=== PATIENT | female | born 1940 | race Caucasian/White ===

== ENCOUNTER → 2016-10-06 | Outpatient (CLI) | payer MEDICARE, BC ==
--- NOTE | 2016-10-11 09:08 | MM ---
Reason for exam: screening (asymptomatic). Last mammogram was performed 1 year ago. History: Patient is postmenopausal and has history of other cancer at age 67. Family history of breast cancer in maternal cousin at age 69. Excisional biopsy of the left breast, 2004. Took hormonal contraceptives for 9 years beginning at age 22. Physical Findings: A clinical breast exam by your physician is recommended on an annual basis and results should be correlated with mammographic findings. MG 3D Screening Mammo W/Cad Bilateral CC and MLO view(s) were taken. Prior study comparison: September 23, 2015, bilateral MG 3d screening mammo w/cad. March 23, 2015, left breast MG diagnostic mammo LT w CAD. There are scattered fibroglandular densities. Focal asymmetry in the left breast upper quadrant seen on MLO view. No significant changes when compared with prior studies. ASSESSMENT: Benign, BI-RAD 2 RECOMMENDATION: Routine screening mammogram of both breasts in 1 year.
== END | disposition home or self-care (01) ==
LOC: RADMAMWWP 15:14
PROVIDERS: ATTEND Family Medicine
DX: Z12.31 Encounter for screening mammogram for malignant neoplasm of breast (principal)
CPT/HCPCS: 77063; G0202

== ENCOUNTER → 2016-10-18 | Outpatient (CLI) | payer MEDICARE, BC ==
[2016-10-18 12:41] LABS: CH 31.8; CHCM 33.6; HCT 39.8 % (34.0-46.0); HDW 2.77; HGB 13.1 gm/dL (11.4-16.0); MCH 31.3 pg (25.0-35.0); MCHC 32.9 g/dL (31.0-37.0); MCV 95.2 fL (80.0-100.0); Mean Platelet Volume 7.2; RBC 4.18 m/uL (3.80-5.40); RDW 14.1 % (11.5-15.5)
== END | disposition home or self-care (01) ==
LOC: LABWHC1 11:57
PROVIDERS: ATTEND Dermatology Dermatopathology
DX: L40.0 Psoriasis vulgaris (principal); I10 Essential (primary) hypertension; Z79.899 Other long term (current) drug therapy
CPT/HCPCS: 36415; 84443; 84450; 84460; 85027

== ENCOUNTER → 2017-02-23 | Outpatient (CLI) | payer MEDICARE, BC ==
[2017-02-23 17:45] LABS: CH 32.2; CHCM 33.3; HCT 38.5 % (34.0-46.0); HDW 2.59; HGB 12.6 gm/dL (11.4-16.0); MCH 31.8 pg (25.0-35.0); MCHC 32.7 g/dL (31.0-37.0); MCV 97.3 fL (80.0-100.0); Mean Platelet Volume 7.6; RBC 3.96 m/uL (3.80-5.40); RDW 13.9 % (11.5-15.5); WBC 8.7 k/uL (3.8-10.6)
[2017-02-23 17:50] LABS: ALT 40 U/L (9-52); AST 29 U/L (14-36)
== END ==
LOC: LABWHC1 17:10
PROVIDERS: ATTEND Dermatology Dermatopathology
DX: L40.0 Psoriasis vulgaris (principal); Z79.899 Other long term (current) drug therapy
CPT/HCPCS: 36415; 84450; 84460; 85027

== ENCOUNTER → 2017-06-18 | Outpatient (CLI) | payer MEDICARE, BC ==
[2017-06-18 14:48] LABS: CH 32.9; HDW 2.66; MCH 32.4 pg (25.0-35.0); MCHC 33.3 g/dL (31.0-37.0); MCV 97.3 fL (80.0-100.0); RBC 4.32 m/uL (3.80-5.40); RDW 14.4 % (11.5-15.5); WBC 9.1 k/uL (3.8-10.6)
[2017-06-18 15:06] LABS: ALT 40 U/L (9-52); AST 26 U/L (14-36)
== END | disposition home or self-care (01) ==
LOC: LABWHC1 14:02
PROVIDERS: ATTEND Dermatology Dermatopathology
DX: L40.0 Psoriasis vulgaris (principal); Z79.899 Other long term (current) drug therapy
CPT/HCPCS: 36415; 84450; 84460; 85027

== ENCOUNTER → 2017-08-20 | Outpatient (CLI) | payer MEDICARE, BC ==
[2017-08-20 11:38] LABS: Basophils # (A) 0.1 k/uL (0-0.2); Basophils % (A) 1 %; CH 31.9; CHCM 33.4; Eosinophils # (A) 0.3 k/uL (0-0.7); Eosinophils % (A) 5 %; HCT 41.6 % (34.0-46.0); HDW 2.72; HGB 13.5 gm/dL (11.4-16.0); Luc # (Auto) 0.25; Luc % (Auto) 4; Lymphocytes # (A) 1.7 k/uL (1.0-4.8); Lymphocytes % (A) 25 %; MCHC 32.4 g/dL (31.0-37.0); MCV 95.8 fL (80.0-100.0); Mean Platelet Volume 7.4; Monocytes # (A) 0.4 k/uL (0-1.0); Monocytes % (A) 6 %; Neutrophils # (A) 4.1 k/uL (1.3-7.7); Neutrophils % (A) 60 %; RBC 4.34 m/uL (3.80-5.40); RDW 13.6 % (11.5-15.5); WBC 6.9 k/uL (3.8-10.6); WBC (Perox) 7.29
[2017-08-20 11:50] LABS: ALT 49 U/L (9-52); AST 33 U/L (14-36); Alkaline Phosphatase 74 U/L (38-126); Anion Gap 9 mmol/L; Blood Urea Nitrogen 14 mg/dL (7-17); Calcium 9.5 mg/dL (8.4-10.2); Carbon Dioxide 26 mmol/L (22-30); Chloride 105 mmol/L (98-107); Cholesterol 218 mg/dL (<200); Glucose 93 mg/dL (74-99); HDL Cholesterol 54 mg/dL (40-60); Non-African American GFR(MDRD) >60 (>60 ml/min/1.73 sqM); Sodium 140 mmol/L (137-145); Total Bilirubin 0.3 mg/dL (0.2-1.3); Total Protein 7.2 g/dL (6.3-8.2)
== END | disposition home or self-care (01) ==
LOC: LABWHC1 10:28
PROVIDERS: ATTEND Family Medicine
DX: I10 Essential (primary) hypertension (principal)
CPT/HCPCS: 36415; 80053; 80061; 84443; 85025

== ENCOUNTER → 2017-10-23 | Outpatient (CLI) | payer MEDICARE, BC ==
[2017-10-23 15:43] LABS: HCT 41.3 % (34.0-46.0); HGB 13.8 gm/dL (11.4-16.0); MCH 31.7 pg (25.0-35.0); MCHC 33.5 g/dL (31.0-37.0); MCV 94.6 fL (80.0-100.0); Mean Platelet Volume 7.5; Platelet Count 262 k/uL (150-450); RBC 4.37 m/uL (3.80-5.40); RDW 13.6 % (11.5-15.5); WBC 8.6 k/uL (3.8-10.6)
[2017-10-23 16:12] LABS: ALT 34 U/L (9-52); AST 30 U/L (14-36)
== END | disposition home or self-care (01) ==
LOC: LABWHC1 14:50
PROVIDERS: ATTEND Dermatology Dermatopathology
DX: L40.0 Psoriasis vulgaris (principal); Z79.899 Other long term (current) drug therapy
CPT/HCPCS: 36415; 84450; 84460; 85027

== ENCOUNTER → 2017-10-31 | Outpatient (CLI) | payer MEDICARE, BC ==
--- NOTE | 2017-11-02 07:13 | MM ---
Reason for exam: screening (asymptomatic). Last mammogram was performed 1 year and 1 month ago. History: Patient is postmenopausal and has history of other cancer at age 67. Family history of breast cancer in maternal cousin at age 69. Excisional biopsy of the left breast, 2004. Took hormonal contraceptives for 9 years beginning at age 22. Physical Findings: A clinical breast exam by your physician is recommended on an annual basis and results should be correlated with mammographic findings. MG 3D Screening Mammo W/Cad Bilateral CC and MLO view(s) were taken. Prior study comparison: October 06, 2016, bilateral MG 3d screening mammo w/cad. September 23, 2015, bilateral MG 3d screening mammo w/cad. There are scattered fibroglandular densities. No significant changes when compared with prior studies. ASSESSMENT: Benign, BI-RAD 2 RECOMMENDATION: Routine screening mammogram of both breasts in 1 year.
== END | disposition home or self-care (01) ==
LOC: RADMAMWWP 13:17
PROVIDERS: ATTEND Family Medicine
DX: Z12.31 Encounter for screening mammogram for malignant neoplasm of breast (principal)
CPT/HCPCS: 77063; 77067

== ENCOUNTER 2018-01-22 08:29 | Day surgery (SDC) | payer MEDICARE, BC ==
[2018-01-15 10:59] VITALS: BMI 29.9
[~2018-01-22 08:29] MED LIST: LACTATED RINGERS 1,000 ML IV SCH; LIDOCAINE 1% 20 ML VIAL (10MG/ML) FOR IV START INTRADERMA PRN
[2018-01-22 09:31] VITALS: TEMP 98.3
[2018-01-22] MEDS: PHENYLEPHRINE 10% OPHTH DROPS 5 ML BTL OP ONE ×3 (09:38→10:07)
[2018-01-22] MEDS: CYCLOPENTOLATE 1% OPHTH SOLN 2 ML BTL OP ONE ×3 (09:42→10:09)
[2018-01-22] MEDS: FLURBIPROFEN 0.03% OPHTH DROPS 2.5 ML BTL OP ONE ×3 (09:49→10:11)
[2018-01-22] MEDS ORDERED: PROPOFOL 10 MG/ML 20 ML VIAL IV ONE (10:21)
[2018-01-22] MEDS ORDERED: LIDOCAINE 1% INJ 10MG/ML (20 ML MDV) ONE (10:21)
[2018-01-22] MEDS ORDERED: HYALURONATE SODIUM INTRAOCULAR 1 EACH SYRINGE (10MG/ML) INTRAOCULA ONE (10:26)
[2018-01-22] MEDS ORDERED: BALANCED SALT IRRIG SOLN COMB2 15 ML IRRIG.SOLN INTRAOCULA ONE (10:26)
[2018-01-22] MEDS ORDERED: EPINEPHrine (PF) 0.5 ML in BALANCED SALT IRRIG SOLN COMB2 500 ML IRRIGATION ONE (10:28)
[2018-01-22] MEDS ORDERED: TETRACAINE 0.5% OPHTH (PF) DROPS 4 ML BTL LEFT EYE ONE (10:32)
[2018-01-22] MEDS ORDERED: LIDOCAINE 1% (PF) 10MG/ML VIAL SQ ONE (10:33)
--- NOTE | 2018-01-22 10:46 | P.OP ---
Date of Procedure: 01/22/18 Procedure(s) Performed: PREOPERATIVE DIAGNOSIS: Cataract, left eye. POSTOPERATIVE DIAGNOSIS: Cataract, left eye. OPERATION: Phacoemulsification cataract, left eye. DESCRIPTION OF PROCEDURE: The patient was taken to the preoperative holding area. Intravenous Propofol was given so as to bring about adequate sedation. The following mixture was given for local anesthesia: 5 mL of 2% lidocaine, 5 mL of 0.75% Marcaine, and 1 mL of Wydase. Approximately 4 mL was injected in the retrobulbar space of the surgical eye. Additional 1 mL was then directed to the temporal area of the surgical eye. This was performed to allow adequate neurological block of the facial muscles. The patient was revived and then taken into the operative room. The patient was prepped and draped in the usual sterile manner for the operative eye. A lid speculum was put into position. The conjunctiva was resected back from the limbus in the 12 o'clock position. Bleeding was controlled with electrocautery. A #69 blade was then used and a half-thickness scleral incision approximately 1-mm posterior to the limbus was made on bare sclera. This was shelved in the clear cornea using a crescent knife. Next a 15-degree blade was used to make a stab incision at the 3 o' clock position at the corneolimbal interface. Keratome blade was then used and the superior wound was extended into the anterior chamber. Viscoelastic was injected into the anterior chamber and to maintain its form. Next, a cystotome was used and a continuous anterior capsulotomy was made without difficulty. Hydrodissection using a blunt cannula and BSS was performed. Phaco probe was then employed and a groove extending from 12 to 6 o'clock in the lens was created. A Yimi wand was used through the stab incision so as to perform a divide and conquer technique. Next an irrigation aspiration probe was utilized and any residual cortex was removed from the eye. Again, viscoelastic was injected into the anterior chamber. An Luc posterior chamber lens implant was placed in the cartridge and injected into the anterior chamber without difficulty. The [employer] hook was utilized to spin the lens into position and this was again performed without any difficulty. The irrigation and aspiration probe was again employed and any residual viscoelastic was removed from the eye. Then BSS was injected into the limbal stab incision and the anterior chamber re-inflated. The conjunctiva was reapproximated using electrocautery. One drop of 0.25% Timoptic was placed over the corneal along with TobraDex ophthalmic ointment. Two sterile patches and a Valles eye shield were taped into position. The patient was transported to the recovery room in stable condition. Pathology: none sent Condition: stable Disposition: same day
[2018-01-22 11:17] VITALS: BP 189/76; PULSE 68; RESP 18
[2018-01-22] MEDS ORDERED: BUPIVACAINE (PF) 0.75% 5 ML, HYALURONIDASE, HUMAN RECOMB 150 UNIT, LIDOCAINE 2% (PF) 10... MISCELLANE ONE ×3 (23:00)
[2018-01-22] MEDS ORDERED: TIMOLOL 0.5% OPHTH DROPS 5 ML BTL OP ONE (23:00)
[2018-01-22] MEDS ORDERED: GENTAMICIN/PREDNISOL AC OPHTH OINT 3.5GM OPHTHALMIC ONE (23:00)
== END 2018-01-22 11:33 | disposition home or self-care (01) ==
LOC: OR 08:29
PROVIDERS: ATTEND Ophthalmology
DX: H25.12 Age-related nuclear cataract, left eye (principal); I10 Essential (primary) hypertension; J45.909 Unspecified asthma, uncomplicated; E78.5 Hyperlipidemia, unspecified; E07.9 Disorder of thyroid, unspecified; Z79.890 Hormone replacement therapy; Z79.899 Other long term (current) drug therapy; Z87.891 Personal history of nicotine dependence; Z98.51 Tubal ligation status; Z88.5 Allergy status to narcotic agent
CPT/HCPCS: 66984; V2632; J3470; J2001 ×3; J0171; J2704

== ENCOUNTER → 2018-02-22 | Outpatient (CLI) | payer MEDICARE, BC ==
[2018-02-22 14:27] LABS: HGB 13.6 gm/dL (11.4-16.0); MCH 32.1 pg (25.0-35.0); MCHC 33.9 g/dL (31.0-37.0); MCV 94.8 fL (80.0-100.0); Mean Platelet Volume 7.2; Platelet Count 249 k/uL (150-450); RBC 4.22 m/uL (3.80-5.40); RDW 14.1 % (11.5-15.5)
[2018-02-22 14:35] LABS: ALT 33 U/L (9-52); AST 31 U/L (14-36)
== END | disposition home or self-care (01) ==
LOC: LABWHC1 14:01
PROVIDERS: ATTEND Dermatology Dermatopathology
DX: L40.0 Psoriasis vulgaris (principal); Z79.899 Other long term (current) drug therapy
CPT/HCPCS: 36415; 84450; 84460; 85027

== ENCOUNTER 2018-02-26 07:30 | Day surgery (SDC) | payer MEDICARE, BC ==
[~2018-02-26 07:30] MED LIST changes: +BUPIVACAINE (PF) 0.75% 5 ML, HYALURONIDASE, HUMAN RECOMB 150 UNIT, LIDOCAINE 2% (PF) 10... MISCELLANE ONE; +GENTAMICIN/PREDNISOL AC OPHTH OINT 3.5GM OPHTHALMIC ONE; -LIDOCAINE 1% 20 ML VIAL (10MG/ML) FOR IV START INTRADERMA PRN; +TIMOLOL 0.5% OPHTH DROPS 5 ML BTL OP ONE
[2018-02-26] MEDS: CYCLOPENTOLATE 1% OPHTH SOLN 2 ML BTL OP ONE ×3 (08:00→08:17)
[2018-02-26 08:01] VITALS: TEMP 97.8
[2018-02-26] MEDS: FLURBIPROFEN 0.03% OPHTH DROPS 2.5 ML BTL OP ONE ×3 (08:03→08:20)
[2018-02-26] MEDS: PHENYLEPHRINE 10% OPHTH DROPS 5 ML BTL OP ONE ×3 (08:06→08:23)
[2018-02-26] MEDS ORDERED: HYALURONATE SODIUM INTRAOCULAR 1 EACH SYRINGE (10MG/ML) INTRAOCULA ONE ×2 (09:03→09:16)
[2018-02-26] MEDS ORDERED: BALANCED SALT IRRIG SOLN COMB2 15 ML IRRIG.SOLN IRRIGATION ONE ×2 (09:03→09:16)
[2018-02-26] MEDS ORDERED: PROPOFOL 10 MG/ML 20 ML VIAL IV ONE (09:04)
[2018-02-26] MEDS ORDERED: LIDOCAINE 1% INJ 10MG/ML (20 ML MDV) ONE (09:04)
[2018-02-26] MEDS ORDERED: EPINEPHrine (PF) 0.5 ML in BALANCED SALT IRRIG SOLN COMB2 500 ML IRRIGATION ONE (09:11)
--- NOTE | 2018-02-26 09:26 | P.OP ---
Date of Procedure: 02/26/18 Procedure(s) Performed: PREOPERATIVE DIAGNOSIS: Cataract, right eye. POSTOPERATIVE DIAGNOSIS: Cataract, right eye. OPERATION: Phacoemulsification cataract, right eye. DESCRIPTION OF PROCEDURE: The patient was taken to the preoperative holding area. Intravenous Propofol was given so as to bring about adequate sedation. The following mixture was given for local anesthesia: 5 mL of 2% lidocaine, 5 mL of 0.75% Marcaine, and 1 mL of Wydase. Approximately 4 mL was injected in the retrobulbar space of the surgical eye. Additional 1 mL was then directed to the temporal area of the surgical eye. This was performed to allow adequate neurological block of the facial muscles. The patient was revived and then taken into the operative room. The patient was prepped and draped in the usual sterile manner for the operative eye. A lid speculum was put into position. The conjunctiva was resected back from the limbus in the 12 o'clock position. Bleeding was controlled with electrocautery. A #69 blade was then used and a half-thickness scleral incision approximately 1-mm posterior to the limbus was made on bare sclera. This was shelved in the clear cornea using a crescent knife. Next a 15-degree blade was used to make a stab incision at the 3 o' clock position at the corneolimbal interface. Keratome blade was then used and the superior wound was extended into the anterior chamber. Viscoelastic was injected into the anterior chamber and to maintain its form. Next, a cystotome was used and a continuous anterior capsulotomy was made without difficulty. Hydrodissection using a blunt cannula and BSS was performed. Phaco probe was then employed and a groove extending from 12 to 6 o'clock in the lens was created. A Yimi wand was used through the stab incision so as to perform a divide and conquer technique. Next an irrigation aspiration probe was utilized and any residual cortex was removed from the eye. Again, viscoelastic was injected into the anterior chamber. An Luc posterior chamber lens implant was placed in the cartridge and injected into the anterior chamber without difficulty. The Sin[employer] hook was utilized to spin the lens into position and this was again performed without any difficulty. The irrigation and aspiration probe was again employed and any residual viscoelastic was removed from the eye. Then BSS was injected into the limbal stab incision and the anterior chamber re-inflated. The conjunctiva was reapproximated using electrocautery. One drop of 0.25% Timoptic was placed over the corneal along with TobraDex ophthalmic ointment. Two sterile patches and a Valles eye shield were taped into position. The patient was transported to the recovery room in stable condition. Pathology: none sent Condition: stable Disposition: same day
[2018-02-26 09:36] VITALS: RESP 18
[2018-02-26 09:55] VITALS: BP 163/79; PULSE 62
== END 2018-02-26 10:03 | disposition home or self-care (01) ==
LOC: OR 07:30
PROVIDERS: ATTEND Ophthalmology
DX: H25.11 Age-related nuclear cataract, right eye (principal); H35.369 Drusen (degenerative) of macula, unspecified eye; I10 Essential (primary) hypertension; E78.5 Hyperlipidemia, unspecified; J44.9 Chronic obstructive pulmonary disease, unspecified; Z87.891 Personal history of nicotine dependence; E07.9 Disorder of thyroid, unspecified; Z79.890 Hormone replacement therapy; Z79.899 Other long term (current) drug therapy; Z88.5 Allergy status to narcotic agent
CPT/HCPCS: 66984; V2632; J3470; J2001 ×2; J0171; J2704

== ENCOUNTER → 2018-09-26 | Outpatient (CLI) | payer MEDICARE, BC ==
[2018-09-26 12:16] LABS: Basophils # (A) 0.1 k/uL (0-0.2); Basophils % (A) 1 %; Eosinophils # (A) 0.3 k/uL (0-0.7); Eosinophils % (A) 4 %; HCT 42.9 % (34.0-46.0); Lymphocytes # (A) 1.6 k/uL (1.0-4.8); Lymphocytes % (A) 20 %; MCH 31.4 pg (25.0-35.0); MCHC 32.6 g/dL (31.0-37.0); MCV 96.2 fL (80.0-100.0); Mean Platelet Volume 7.4; Monocytes # (A) 0.6 k/uL (0-1.0); Monocytes % (A) 7 %; Neutrophils # (A) 5.2 k/uL (1.3-7.7); Neutrophils % (A) 65 %; Platelet Count 276 k/uL (150-450); RBC 4.46 m/uL (3.80-5.40); RDW 14.1 % (11.5-15.5)
[2018-09-26 18:10] LABS: Albumin 4.7 g/dL (3.80-4.90); Albumin/Globulin Ratio 2.04 (1.20-2.10); Anion Gap 10.8 mmol/L (4.00-12.00); Calcium 9.6 mg/dL (8.7-10.3); Carbon Dioxide 26.2 mmol/L (21.6-31.8); Globulin 2.3 g/dL (1.6-3.3); Potassium 5.2 mmol/L (3.5-5.5); Total Bilirubin 0.5 mg/dL (0.2-1.2)
== END ==
LOC: LABWHC1 11:28
PROVIDERS: ATTEND Family Medicine
DX: I10 Essential (primary) hypertension (principal); E78.5 Hyperlipidemia, unspecified
CPT/HCPCS: 36415; 80053; 80061; 84443; 85025

== ENCOUNTER → 2018-11-13 | Outpatient (CLI) | payer MEDICARE, BC ==
--- NOTE | 2018-11-14 11:57 | MM ---
Reason for exam: screening (asymptomatic). Last mammogram was performed 1 year ago. History: Patient is postmenopausal and has history of other cancer at age 67. Family history of breast cancer in maternal cousin at age 69. Excisional biopsy of the left breast, 2004. Took hormonal contraceptives for 9 years beginning at age 22. Physical Findings: A clinical breast exam by your physician is recommended on an annual basis and results should be correlated with mammographic findings. MG 3D Screening Mammo W/Cad Bilateral CC and MLO view(s) were taken. Prior study comparison: October 31, 2017, bilateral MG 3d screening mammo w/cad. October 06, 2016, bilateral MG 3d screening mammo w/cad. There are scattered fibroglandular densities. Stable benign calcifications. There is chronic nodularity in the left breast, stable. No significant changes when compared with prior studies. ASSESSMENT: Benign, BI-RAD 2 RECOMMENDATION: Routine screening mammogram of both breasts in 1 year.
== END | disposition home or self-care (01) ==
LOC: RADMAMWWP 09:59
PROVIDERS: ATTEND Family Medicine
DX: Z12.31 Encounter for screening mammogram for malignant neoplasm of breast (principal)
CPT/HCPCS: 77063; 77067

== ENCOUNTER → 2019-01-08 | Outpatient (CLI) | payer MEDICARE, BC ==
[2019-01-08 13:54] LABS: HCT 40.4 % (34.0-46.0); MCHC 32.3 g/dL (31.0-37.0); Mean Platelet Volume 7.5; Platelet Count 263 k/uL (150-450)
[2019-01-08 19:00] LABS: ALT 19 U/L (8-44); AST 25 U/L (13-35)
== END | disposition home or self-care (01) ==
LOC: LABWHC1 13:11
PROVIDERS: ATTEND Dermatology Dermatopathology
DX: L40.0 Psoriasis vulgaris (principal); Z79.899 Other long term (current) drug therapy
CPT/HCPCS: 36415; 84450; 84460; 85027

== ENCOUNTER → 2019-02-27 | Outpatient (CLI) | payer MEDICARE, BC ==
--- NOTE | 2019-02-27 19:21 | ECHOF ---
Referral Reason:R00.2 Palpitations MEASUREMENTS -------- HEIGHT: 165.1 cm WEIGHT: 90.7 kg BP: 174/76 RVIDd: 3.4 cm (< 3.3) IVSd: 1.0 cm (0.6 - 1.1) LVIDd: 3.7 cm (3.9 - 5.3) LVPWd: 1.2 cm (0.6 - 1.1) IVSs: 1.5 cm LVIDs: 2.6 cm LVPWs: 1.6 cm LA Diam: 3.0 cm (2.7 - 3.8) LAESV Index (A-L): 24.45 ml/m Ao Diam: 3.1 cm (2.0 - 3.7) AV Cusp: 1.7 cm (1.5 - 2.6) MV EXCURSION: 14.577 mm (> 18.000) MV EF SLOPE: 79 mm/s (70 - 150) EPSS: 0.2 cm MV E Bill: 1.20 m/s MV DecT: 263 ms MV A Bill: 1.33 m/s MV E/A Ratio: 0.90 AV maxP.73 mmHg AV meanP.88 mmHg RAP: 5.00 mmHg RVSP: 36.82 mmHg FINDINGS -------- Sinus rhythm. This was a technically adequate study. The left ventricular size is normal. There is borderline concentric left ventricular hypertrophy. Overall left ventricular systolic function is normal with, an EF between 60 - 65 %. The right ventricle is mildly enlarged. Normal LA size by volume 22+/-6 ml/m2. The right atrium is normal in size. Interatrial and interventricular septum intact. There is mild aortic valve sclerosis. There is mild aortic stenosis present. Peak/mean gradient a cross the Aortic Valve is 26.73mmHg / 11.88mmHg. Mild mitral regurgitation is present. Mild tricuspid regurgitation present. There is mild pulmonary hypertension. The right ventricular systolic pressure, as measured by Doppler, is 36.82mmHg. Trace/mild (physiologic) pulmonic regurgitation. The aortic root size is normal. Normal inferior vena cava with normal inspiratory collapse consistent with estimated right atrial pre ssure of 5 mmHg. There is no pericardial effusion. CONCLUSIONS -------- 1. Sinus rhythm. 2. This was a technically adequate study. 3. The left ventricular size is normal. 4. There is borderline concentric left ventricular hypertrophy. 5. Overall left ventricular systolic function is normal with, an EF between 60 - 65 %. 6. The right ventricle is mildly enlarged. 7. Normal LA size by volume 22+/-6 ml/m2. 8. The right atrium is normal in size. 9. Interatrial and interventricular septum intact. 10. There is mild aortic valve sclerosis. 11. There is mild aortic stenosis present. 12. Peak/mean gradient across the Aortic Valve is 26.73mmHg / 11.88mmHg. 13. Mild mitral regurgitation is present. 14. Mild tricuspid regurgitation present. 15. There is mild pulmonary hypertension. 16. The right ventricular systolic pressure, as measured by Doppler, is 36.82mmHg. 17. Trace/mild (physiologic) pulmonic regurgitation. 18. The aortic root size is normal. 19. Normal inferior vena cava with normal inspiratory collapse consistent with estimated right atrial pressure of 5 mmHg. 20. There is no pericardial effusion. DIE TURNER: Lizabeth Quezada RDCS
== END | disposition home or self-care (01) ==
LOC: RADECHMAIN 15:22
PROVIDERS: ATTEND Family Medicine
DX: I08.3 Combined rheumatic disorders of mitral, aortic and tricuspid valves (principal); I27.20 Pulmonary hypertension, unspecified
CPT/HCPCS: 93306

== ENCOUNTER → 2019-05-08 | Outpatient (CLI) | payer MEDICARE, BC ==
[2019-05-08 15:17] LABS: HCT 40.5 % (34.0-46.0); HGB 13.4 gm/dL (11.4-16.0); MCH 31.6 pg (25.0-35.0); MCV 95.7 fL (80.0-100.0); Mean Platelet Volume 7.6; Platelet Count 244 k/uL (150-450); RBC 4.23 m/uL (3.80-5.40); RDW 13.5 % (11.5-15.5); WBC 7.7 k/uL (3.8-10.6)
[2019-05-08 18:58] LABS: ALT 22 U/L (8-44); AST 24 U/L (13-35)
== END | disposition home or self-care (01) ==
LOC: LABWHC1 14:05
PROVIDERS: ATTEND Dermatology Dermatopathology
DX: L40.0 Psoriasis vulgaris (principal); Z79.899 Other long term (current) drug therapy
CPT/HCPCS: 36415; 84450; 84460; 85027

== ENCOUNTER → 2019-06-16 | Outpatient (CLI) | payer MEDICARE, BC ==
--- NOTE | 2019-06-19 12:09 | EST ---
EXERCISE STRESS The patient was monitored for 24 hours. CLINICAL INFORMATION: Baseline rhythm is a sinus mechanism with normal conduction the average rate 66 beats per minute, minimum 47, maximum 107 beats per minute. Ventricular ectopic activity was present in the form of rare single PVCs. Supraventricular ectopic activity was present in the form of rare single PACs. Symptoms of palpitations did not correlate with a clear arrhythmia. CONCLUSION: 1. Sinus mechanism baseline rhythm. 2. Rare ventricular ectopic activity. 3. Rare supraventricular ectopic activity. 4. Symptoms did not correlate with clear arrhythmia. MMODL / IJN: [id number] /
== END | disposition home or self-care (01) ==
LOC: RADECHMAIN 12:29
PROVIDERS: ATTEND Family Medicine
DX: R00.2 Palpitations (principal)
CPT/HCPCS: 93225; 93226

== ENCOUNTER → 2019-06-26 | Outpatient (CLI) | payer MEDICARE, BC ==
[2019-06-27 01:52] LABS: African American GFR (CKD) 82.4 (60.0-200.0); Anion Gap 7.9 mmol/L (4.00-12.00); BUN/Creat Ratio 22.5 Ratio (12.00-20.00); Calcium 9.2 mg/dL (8.7-10.3); Carbon Dioxide 26.1 mmol/L (21.6-31.8); Potassium 4.6 mmol/L (3.5-5.5)
== END | disposition home or self-care (01) ==
LOC: LABWHC1 11:20
PROVIDERS: ATTEND Family Medicine
DX: E78.5 Hyperlipidemia, unspecified (principal)
CPT/HCPCS: 36415; 80048

== ENCOUNTER → 2019-08-19 | Outpatient (CLI) | payer MEDICARE, BC ==
[2019-08-19 12:14] LABS: HCT 39.7 % (34.0-46.0); HGB 13.5 gm/dL (11.4-16.0); MCH 32.2 pg (25.0-35.0); MCV 94.6 fL (80.0-100.0); Mean Platelet Volume 6.3; Platelet Count 290 k/uL (150-450); RBC 4.19 m/uL (3.80-5.40); RDW 13.4 % (11.5-15.5); WBC 7.9 k/uL (3.8-10.6)
[2019-08-19 16:25] LABS: ALT 25 U/L (8-44); AST 24 U/L (13-35)
== END | disposition home or self-care (01) ==
LOC: LABWHC1 11:22
PROVIDERS: ATTEND Dermatology Dermatopathology
DX: L40.0 Psoriasis vulgaris (principal); Z79.899 Other long term (current) drug therapy
CPT/HCPCS: 36415; 84450; 84460; 85027

== ENCOUNTER → 2020-03-10 | Outpatient (CLI) | payer MEDICARE, BC ==
[2020-03-10 10:59] LABS: Basophils # (A) 0.1 k/uL (0-0.2); Basophils % (A) 1 %; Eosinophils # (A) 0.2 k/uL (0-0.7); Eosinophils % (A) 4 %; HCT 39.9 % (34.0-46.0); HGB 13.4 gm/dL (11.4-16.0); Lymphocytes # (A) 1.3 k/uL (1.0-4.8); Lymphocytes % (A) 21 %; MCH 32.3 pg (25.0-35.0); MCHC 33.4 g/dL (31.0-37.0); MCV 96.7 fL (80.0-100.0); Mean Platelet Volume 8.3; Monocytes # (A) 0.4 k/uL (0-1.0); Monocytes % (A) 6 %; Neutrophils # (A) 4.4 k/uL (1.3-7.7); Neutrophils % (A) 68 %; Platelet Count 227 k/uL (150-450); RBC 4.13 m/uL (3.80-5.40); RDW 13.7 % (11.5-15.5); WBC 6.5 k/uL (3.8-10.6)
[2020-03-10 18:31] LABS: African American GFR (CKD) 82.4 (60.0-200.0); Albumin 4.5 g/dL (3.80-4.90); Albumin/Globulin Ratio 2.05 (1.60-3.17); Anion Gap 9.2 mmol/L (4.00-12.00); BUN/Creat Ratio 18.75 Ratio (12.00-20.00); Calcium 9.4 mg/dL (8.7-10.3); Carbon Dioxide 26.8 mmol/L (21.6-31.8); Chol/HDL Ratio 3.1; Globulin 2.2 g/dL (1.6-3.3); LDL Cholesterol,Calculated 74.6 mg/dL (0.0-131.0); Non-African American GFR(CKD) 71.1 (60.0-200.0); Potassium 4.6 mmol/L (3.5-5.5); Total Bilirubin 0.6 mg/dL (0.2-1.2); Total Protein 6.7 g/dL (6.2-8.2); VLDL Calculation 32.4 mg/dL (5.00-40.00)
== END | disposition home or self-care (01) ==
LOC: LABWHC1 09:51
PROVIDERS: ATTEND Dermatology Dermatopathology
DX: L40.0 Psoriasis vulgaris (principal); Z79.899 Other long term (current) drug therapy
CPT/HCPCS: 36415; 80053; 80061; 84443; 85025; 86803

== ENCOUNTER → 2020-03-10 | Outpatient (CLI) | payer MEDICARE, BC ==
--- NOTE | 2020-03-11 11:08 | MM ---
Reason for exam: screening (asymptomatic). Last mammogram was performed 1 year and 4 months ago. History: Patient is postmenopausal and has history of other cancer at age 67. Family history of breast cancer in maternal cousin at age 69. Excisional biopsy of the left breast, 2004. Took hormonal contraceptives for 9 years beginning at age 22. Physical Findings: A clinical breast exam by your physician is recommended on an annual basis and results should be correlated with mammographic findings. MG 3D Screening Mammo W/Cad Bilateral CC and MLO view(s) were taken. Prior study comparison: November 13, 2018, bilateral MG 3d screening mammo w/cad. October 31, 2017, bilateral MG 3d screening mammo w/cad. There are scattered fibroglandular densities. There are benign appearing round dystrophic calcifications bilaterally. Asymmetric breast tissue in the left breast. There is no discrete abnormality. ASSESSMENT: Benign, BI-RAD 2 RECOMMENDATION: Routine screening mammogram of both breasts in 1 year.
== END | disposition home or self-care (01) ==
LOC: RADMAMWWP 09:29
PROVIDERS: ATTEND Family Medicine
DX: Z12.31 Encounter for screening mammogram for malignant neoplasm of breast (principal)
CPT/HCPCS: 77063; 77067

== ENCOUNTER → 2020-07-16 | Outpatient (CLI) | payer MEDICARE, BC ==
[2020-07-16 14:01] LABS: HCT 38.4 % (34.0-46.0); HGB 12.8 gm/dL (11.4-16.0); MCH 32.5 pg (25.0-35.0); MCHC 33.4 g/dL (31.0-37.0); MCV 97.4 fL (80.0-100.0); Mean Platelet Volume 7.8; Platelet Count 254 k/uL (150-450); RBC 3.94 m/uL (3.80-5.40); RDW 13.7 % (11.5-15.5); WBC 8.5 k/uL (3.8-10.6)
[2020-07-16 20:53] LABS: ALT 19 U/L (8-44); AST 23 U/L (13-35)
== END | disposition home or self-care (01) ==
LOC: LABWHC1 13:11
PROVIDERS: ATTEND Dermatology Dermatopathology
DX: L40.0 Psoriasis vulgaris (principal); Z79.899 Other long term (current) drug therapy
CPT/HCPCS: 36415; 84450; 84460; 85027

== ENCOUNTER → 2020-08-05 | Outpatient (CLI) | payer MEDICARE, BC ==
--- NOTE | 2020-08-05 16:37 | US ---
EXAMINATION TYPE: US carotid duplex BILAT DATE OF EXAM: 08/05/2020 COMPARISON: NONE CLINICAL HISTORY: R55 Syncope and collapse. EXAM MEASUREMENTS: RIGHT: Peak Systolic Velocity (PSV) cm/sec ----- Right CCA: 43.5 ----- Right ICA: 239 ----- Right ECA: 40.8 ICA/CCA ratio: 5.5 RIGHT: End Diastole cm/sec ----- Right CCA: 14.3 ----- Right ICA: 39.8 ----- Right ECA: 4.8 LEFT: Peak Systolic Velocity (PSV) cm/sec ----- Left CCA: 110 ----- Left ICA: 109 ----- Left ECA: 152 ICA/CCA ratio: 1.0 LEFT: End Diastole cm/sec ----- Left CCA: 25.3 ----- Left ICA: 34.8 ----- Left ECA: 21.6 VERTEBRALS (direction of flow): Right Vertebral: Antegrade Left Vertebral: Antegrade Rhythm: Normal Peak systolic velocity within the proximal internal carotid artery in the right is elevated. ICA to C CA ratio is elevated. There is spectral broadening, loss of the systolic window.. Severe amount of pl aque visualized bilateral bulbs. Elevated velocities visualized right bulb, right ICA, and left ECA IMPRESSION: Hemodynamic significant stenosis of the proximal internal carotid artery on the right co rresponding to 50-69% diameter reduction by Doppler criteria, perhaps higher grade stenosis, MRA or C TA may be of benefit. Criteria for Assigning % of Stenosis / Diameter reduction (Estimation based on the indirect measurements of the internal carotid artery velocities (ICA PSV). 1. Normal (no stenosis)=ICA PSV < 125 cm/s: ratio < 2.0: ICA EDV<40 cm/s. 2. Less than 50% stenosis=ICA PSV < 125 cm/s: ratio < 2.0: ICA EDV<40 cm/s. 3. 50 to 69% stenosis=ICA PSV of 125 to 230 cm/s: ration 2.0 ? 4.0: ICA EDV 40-100 cm/s. 4. Greater than 70% stenosis to near occlusion= ICA PSV > 230 cm/s: ratio > 4.0: ICA EDV > 100 cm/s. 5. Near occlusion= ICA PSV velocities may be low or undetectable: variable ratio and ICA EDV. 6. Total occlusion=unable to detect flow.
--- NOTE | 2020-08-06 09:46 | ECHOF ---
Referral Reason:R55 Syncope and collapse MEASUREMENTS -------- HEIGHT: 162.6 cm WEIGHT: 81.6 kg BP: 159/68 RVIDd: 2.9 cm (< 3.3) IVSd: 1.1 cm (0.6 - 1.1) LVIDd: 3.9 cm (3.9 - 5.3) LVPWd: 1.1 cm (0.6 - 1.1) IVSs: 1.5 cm LVIDs: 2.7 cm LVPWs: 1.4 cm LA Diam: 3.3 cm (2.7 - 3.8) LAESV Index (A-L): 20.58 ml/m Ao Diam: 3.3 cm (2.0 - 3.7) AV Cusp: 1.8 cm (1.5 - 2.6) MV EXCURSION: 14.577 mm (> 18.000) MV EF SLOPE: 86 mm/s (70 - 150) EPSS: 0.3 cm MV E Bill: 1.11 m/s MV DecT: 202 ms MV A Bill: 1.39 m/s MV E/A Ratio: 0.79 AV maxP.43 mmHg AV meanP.05 mmHg RAP: 5.00 mmHg RVSP: 32.22 mmHg FINDINGS -------- Sinus rhythm. This was a technically good study. The left ventricular size is normal. There is borderline concentric left ventricular hypertrophy. Overall left ventricular systolic function is normal with, an EF between 60 - 65 %. The right ventricle is normal in size. Normal LA size by volume 22+/-6 ml/m2. The right atrium is normal in size. Interatrial and interventricular septum intact. There is mild aortic valve sclerosis. There is mild aortic stenosis present. Peak/mean gradient a cross the Aortic Valve is 23.43mmHg / 12.05mmHg. The mitral valve leaflets are mildly thickened. Mild mitral annular calcification present. Mild m itral regurgitation is present. Mild tricuspid regurgitation present. Right ventricular systolic pressure is normal at < 35 mmHg. Trace/mild (physiologic) pulmonic regurgitation. The aortic root size is normal. Normal inferior vena cava with normal inspiratory collapse consistent with estimated right atrial pre ssure of 5 mmHg. There is no pericardial effusion. CONCLUSIONS -------- 1. The left ventricular size is normal. 2. There is borderline concentric left ventricular hypertrophy. 3. Overall left ventricular systolic function is normal with, an EF between 60 - 65 %. 4. There is mild aortic valve sclerosis. 5. There is mild aortic stenosis present. 6. Peak/mean gradient across the Aortic Valve is 23.43mmHg / 12.05mmHg. 7. The mitral valve leaflets are mildly thickened. 8. Mild mitral annular calcification present. 9. Mild mitral regurgitation is present. 10. Mild tricuspid regurgitation present. 11. Trace/mild (physiologic) pulmonic regurgitation. 12. There is no pericardial effusion. [employer] COACH: Lizabeth Quezada RDCS
== END | disposition home or self-care (01) ==
LOC: RADUSMAIN 14:47
PROVIDERS: ATTEND Family Medicine
DX: R55 Syncope and collapse (principal)
CPT/HCPCS: 93306; 93880

== ENCOUNTER → 2020-09-02 | Outpatient (CLI) | payer MEDICARE, BC ==
--- NOTE | 2020-09-02 14:15 | MR ---
EXAMINATION TYPE: MR angio neck wo/w con DATE OF EXAM: 09/02/2020 COMPARISON: Carotid ultrasound August 05, 2020 HISTORY: Syncope CONTRAST: Standard multiplanar, multisequence MRI departmental protocol utilizing 7.5 mL intravenous Gadavist g adolinium contrast. 2-D and 3-D reconstructive images created on an independent workstation and revi ewed. FINDINGS: Bovine-type arch which is normal variant. Satisfactory blood flow in the bilateral subclavi an arteries. Right common carotid artery shows normal origin from the right brachiocephalic artery. S ignificant stenosis right carotid bulb is confirmed seen best on coronal image 78 series 601 over a r oughly 6 to 7 mm short segment. There is narrowing down to roughly 1.0 mm and reconstitution to 5.5 m m superior to this. Left external carotid artery is small caliber, cannot exclude significant stenosi s at its origin. The opposite left carotid bulb shows no significant stenosis slightly higher in position seen best im age 89. Remainder of the internal carotid arteries bilaterally to the upper cervical segment shows no significant stenosis. 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 Right vertebral artery is patent to the basilar chula ction. IMPRESSION: 1. Significant stenosis is confirmed in the proximal right internal carotid artery at the carotid bul b, degree of stenosis measured 80-85%. 2. I cannot document a confirmed antegrade flow in the left vertebral artery as was seen on ultrasoun d. Dominant right vertebral artery fills the basilar artery.
== END | disposition home or self-care (01) ==
LOC: RADMRIMAIN 12:31
PROVIDERS: ATTEND Family Medicine
DX: I65.21 Occlusion and stenosis of right carotid artery (principal)
CPT/HCPCS: 70549; A9585

== ENCOUNTER → 2020-11-01 | Outpatient (CLI) | payer MEDICARE, BC ==
[~2020-11-01] MED LIST changes: -BUPIVACAINE (PF) 0.75% 5 ML, HYALURONIDASE, HUMAN RECOMB 150 UNIT, LIDOCAINE 2% (PF) 10... MISCELLANE ONE; -GENTAMICIN/PREDNISOL AC OPHTH OINT 3.5GM OPHTHALMIC ONE; -LACTATED RINGERS 1,000 ML IV SCH; +REGADENOSON 0.4 MG/5 ML SYRINGE IV PRN; -TIMOLOL 0.5% OPHTH DROPS 5 ML BTL OP ONE
--- NOTE | 2020-11-01 12:38 | EST ---
EXERCISE STRESS AGE: 80 SEX: Female HT: 5'4" WT: 396 lbs PROTOCOL: Lexiscan STAGE: DURATION OF EXERCISE: 5 min. HEART RATE REST: 74 BLOOD PRESSURE REST: 166/71 MAXIMUM HEART RATE ACHIEVED: 99 MAXIMUM BLOOD PRESSURE: 175/75 85% MPHR: 121 100% MPHR: 142 METS: INDICATIONS: Chest pain CLINICAL INFORMATION: Baseline rhythm is a sinus mechanism, rate of 74, normal axis and intervals. Normal electrocardiogram. Baseline blood pressure 166/71 mmHg. Patient received an injection of Lexiscan. Electrocardiograph monitoring revealed no evidence of diagnostic ischemic ST deviation. Cardiolite was injected per protocol. CONCLUSION: 1. Nondiagnostic electrocardiograph stress testing. 2. Nuclear images will be reported separately. MMODL / IJN: [id number] /
--- NOTE | 2020-11-01 13:49 | NM ---
"EXAMINATION TYPE: NM stress lexiscan cardiolite DATE OF EXAM: 11/01/2020 COMPARISON: NONE HISTORY: Essential hypertension, I 10 TECHNIQUE: After the intravenous administration of 9.47 mCi Tc 99m Sestamibi - Cardiolite resting SP ECT images acquired 45 minutes post injection. The patient received 0.4mg Lexiscan, 27.3 mCi Tc 99m Sestamibi - Stress images obtained [address] injection FINDINGS: Review of stress and rest SPECT images demonstrates some decreased uptake along the inferior lateral left ventricle on stress as compared to rest images. Gated analysis shows normal wall motion with an estimated left ventricular ejection fraction of 70 %. IMPRESSION: Pharmacologically induced left ventricular myocardial ischemia, correlate with echocardiographic anal ysis for possible elevated ejection fraction A Yellow level critical message alert has been initiated for Kathy Holm MD via the [employer] | Critical Results System on 11/01/2020 1:47 PM. This message alert has been sent to Kathy Holm MD via the preferences provided by the clinician for the receipt of Radiology Critical Findings. Md latoyage ID [id number]."
== END | disposition home or self-care (01) ==
LOC: RADNMMAIN 07:50
PROVIDERS: ATTEND Family Medicine
DX: I10 Essential (primary) hypertension (principal)
CPT/HCPCS: 93017; 78452; A9500; J2785

== ENCOUNTER → 2020-11-01 | Outpatient (CLI) | payer MEDICARE, BC ==
[2020-11-01 19:48] LABS: HCT 40.9 % (37.2-46.3); HGB 13.2 g/dL (12.0-15.0); MCH 31.2 pg (27.0-32.0); MCHC 32.3 g/dL (32.0-37.0); MCV 96.7 fL (80.0-97.0); Mean Platelet Volume 11.8 fL (9.5-12.2); Platelet Count 254 X 10*3/uL (140-440); RBC 4.23 X 10*6/uL (4.10-5.20); RDW 13.5 % (11.5-14.5); WBC 10.01 X 10*3/uL (4.50-10.00)
[2020-11-01 21:44] LABS: ALT 17 U/L (8-44); AST 24 U/L (13-35)
== END | disposition home or self-care (01) ==
LOC: LABWHC1 10:43
PROVIDERS: ATTEND Dermatology Dermatopathology
DX: L40.0 Psoriasis vulgaris (principal); Z79.899 Other long term (current) drug therapy
CPT/HCPCS: 36415; 84450; 84460; 85027

== ENCOUNTER 2020-11-26 11:03 | Day surgery (SDC) | payer MEDICARE, BC ==
[2020-11-22 11:52] VITALS: BMI 30.9
[~2020-11-26 11:03] MED LIST changes: +ALPRAZolam 0.25 MG TAB PO PRN; +ALPRAZolam 0.5 MG TAB PO PRN; +ASPIRIN 325 MG TAB PO ONE; +ATORVASTATIN 80 MG TAB PO ONE; +NITROGLYCERIN SL TABS 0.4 MG TAB SUBLINGUAL PRN; -REGADENOSON 0.4 MG/5 ML SYRINGE IV PRN; +SODIUM CHLORIDE 0.9% 1,000 ML in EMPTY BAG 1 BAG IV ONE
[2020-11-26] MEDS ORDERED: SODIUM CHLORIDE 0.9% 1,000 ML IV ONE (11:17)
[2020-11-26 11:32] VITALS: RESP 16; TEMP 98.2
[2020-11-26] MEDS ORDERED: LIDOCAINE 1% INJ 10MG/ML (20 ML MDV) ONE (11:36)
[2020-11-26] MEDS ORDERED: HEPARIN SODIUM 1,000 UN/ML (10ML VL) ONE (11:36)
[2020-11-26] MEDS ORDERED: VERAPAMIL 2.5 MG/ML 2 ML AMP ONE (11:36)
[2020-11-26] MEDS ORDERED: fentaNYL (PF) 50 MCG/ML 2 ML AMP ONE (11:53)
[2020-11-26] MEDS: MIDAZOLAM 2 MG/2 ML VIAL IVP ONE ×2 (12:07→12:12)
[2020-11-26] MEDS ORDERED: fentaNYL (PF) 50 MCG/ML 2 ML AMP IVP ONE (12:07)
[2020-11-26] MEDS ORDERED: LIDOCAINE 1% INJ 10MG/ML (20 ML MDV) SQ ONE (12:11)
[2020-11-26] MEDS ORDERED: VERAPAMIL SYRINGE (5 MG/10 ML) INTRAARTER ONE (12:13)
[2020-11-26] MEDS: HEPARIN SODIUM 1,000 UN/ML (10ML VL) IV ONE ×2 (12:16→12:34)
[2020-11-26] MEDS ORDERED: IOPAMIDOL-370 125ML BTL INJ ONE (12:36)
[2020-11-26] MEDS ORDERED: RX INFO: IV CONTRAST WAS GIVEN 1 EACH MISC MISCELLANE PRN (16:21)
[2020-11-26 16:33] VITALS: BP 142/71; PULSE 67
--- NOTE | 2020-11-26 16:41 | P.CARDCATH ---
Description of Procedure: PROCEDURES PERFORMED: Left heart catheterization, bilateral coronary angiography INDICATION: Abnormal stress test HISTORY: This is a pleasant 80 year old female with history of HTN, HLD, carotid stenosis, mild aortic stenosis and abnormal stress test who follows with Dr Brito. She is a prior retired nurse. She had been worked up for a murmur and bruit and was found to have carotid disease and is being worked up for possible intervention. She had an echo performed which showed mild aortic stenosis and preserved EF. She had a stress test which showed inferior ischemia. She has been asymptomatic without any chest pain, pressure or SOB. She did however have an episode of possible loss of consciousness a few years back. Secondary to abnormal stress test, a heart catheterization was recommended. CONSENT:I have discussed the risks, benefits and alternative therapies for the above-mentioned procedure and for both sedation/analgesia as well as necessary blood product administration, if indicated, as they pertain to this patient. The patient has indicated understanding and acceptance of the risks and procedures discussed. PROCEDURE: After the risks, benefits and alternatives of the above mentioned procedure explained in detail with the patient, informed consent was obtained. Patient was taken to the catheterization lab and prepped and draped in usual fashion. 1% lidocaine was used to anesthetize the right radial artery. A 6- [place] sheath was placed in the right radial artery using modified Seldinger technique. Left coronary angiography was performed with a 5-[place] JL 3.5 catheter. Right coronary angiography was performed with a 5-[place] FR 5 catheter in various views. The FR5 catheter was inserted into the left ventricle and pressure measurements were obtained. The RCA stenosis only appears 40-50% stenosis however given this was the area of ischemia, a decsion was made to perform iFR. Heparin was given. A 6Fr FR5 guide catheter was advanced. A 0.014 pressure guidewire was advanced then normalized. The pressure wire was then advanced into the mid RCA and iFR recording was performed with a reading of 0.98. The wire and catheter were then removed. The right radial sheath was removed and a TR band was placed with hemostasis achieved. The patient tolerated the procedure well. Patient was transported back to the post catheterization holding area in stable condition. Conscious Sedation: Patient was monitored under the direct supervision of vision of myself for conscious sedation using fentanyl for a total duration of 32 minutes HEMODYNAMICS: Aorta: 120/66 LV: 120/0 LVEDP 7 mmHg there was a peak to peak gradient of 20mmHg with pullback SELECTIVE CORONARY ARTERIOGRAPHY: LEFT MAIN: The left main is a large caliber, short vessel which bifurcates into the LAD and circumflex. There is no significant stenosis. LEFT ANTERIOR DESCENDING CORONARY ARTERY: LAD is a large caliber vessel which wraps around to the apex. There are mild luminal irregularities with mid LAD 30% stenosis just after a moderate caliber diagonal 1. LEFT CIRCUMFLEX CORONARY ARTERY: Left circumflex is a moderate caliber vessel. The circumflex has mild luminal irregularities and gives off 3 OM branches. RIGHT CORONARY ARTERY: The right coronary artery is a large caliber vessel which gives off a PDA and PLV branch and is the dominant vessel. There is a proximal 40-50% RCA stenosis and otherwise normal RCA. iFR of proximal RCA stenosis normal at 0.98. FINAL IMPRESSION: 1. Mild CAD with only 30% mid LAD stenosis and 40-50% RCA stenosis (iFR negative) 2. Normal left-sided filling pressures 3. Mild aortic stenosis with peak to peak gradient of 20mmHg PLAN: 1. Aggressive risk factor modification per most recent ACC/AHA guidelines. 2. RCA disease appeared only mild to moderate on angiography however since this was the area of ischemia, this was verified with an iFR of the RCA which was normal at 0.98. Continue with medical therapy.
== END 2020-11-26 16:33 | disposition home or self-care (01) ==
LOC: CATHCVL 11:03
PROVIDERS: ATTEND Internal Medicine
DX: I25.10 Atherosclerotic heart disease of native coronary artery without angina pectoris (principal); I35.0 Nonrheumatic aortic (valve) stenosis; I10 Essential (primary) hypertension; I65.23 Occlusion and stenosis of bilateral carotid arteries; E78.5 Hyperlipidemia, unspecified; Z72.0 Tobacco use; Z82.49 Family history of ischemic heart disease and other diseases of the circulatory system; Z88.5 Allergy status to narcotic agent; Z79.899 Other long term (current) drug therapy
CPT/HCPCS: 93571; 93458; C1887; J2250; J2001; J3010; J1644; Q9967

== ENCOUNTER → 2020-12-14 | Outpatient (CLI) | payer MEDICARE, BC ==
[2020-12-14 16:51] LABS: HCT 37.7 % (34.0-46.0); HGB 12.9 gm/dL (11.4-16.0); MCH 32.2 pg (25.0-35.0); MCHC 34.3 g/dL (31.0-37.0); MCV 93.9 fL (80.0-100.0); Mean Platelet Volume 7.9; Platelet Count 225 k/uL (150-450); RBC 4.02 m/uL (3.80-5.40); RDW 13.7 % (11.5-15.5); WBC 7.9 k/uL (3.8-10.6)
== END | disposition home or self-care (01) ==
LOC: LABPAT 16:30
PROVIDERS: ATTEND Surgery
DX: Z01.818 Encounter for other preprocedural examination (principal)
CPT/HCPCS: 36415; 85027

== ENCOUNTER 2020-12-16 05:44 | Inpatient (IN) | payer MEDICARE, BC ==
[2020-12-14 08:59] VITALS: BMI 30.9
[2020-12-16] MEDS ORDERED: LIDOCAINE 1% (10MG/ML) FOR IV START INTRADERMA PRN (05:48)
[2020-12-16] MEDS ORDERED: DEXAMETHASONE SOD PHOSPHATE 4 MG/ML 1 ML VIAL IV ONE (05:48)
[2020-12-16] MEDS ORDERED: MIDAZOLAM 2 MG/2 ML VIAL IV PRN (05:48)
[2020-12-16] MEDS ORDERED: HYDROmorphone 0.5 MG/0.5 ML SYRINGE IVP PRN (05:48)
[2020-12-16] MEDS ORDERED: ONDANSETRON 4 MG/2 ML VIAL IVP ONE (05:48)
[2020-12-16] MEDS ORDERED: NITROGLYCERIN-D5W PMX 50 MG in DEXTROSE/WATER 1 250ML.BAG IV SCH (05:48)
[2020-12-16] MEDS: LACTATED RINGERS 1,000 ML IV SCH (06:56)
[2020-12-16] MEDS ORDERED: PROPOFOL 10 MG/ML 20 ML VIAL IV ONE (07:12)
[2020-12-16] MEDS ORDERED: ROCURONIUM 10 MG/ML (5 ML VIAL) IV ONE (07:12)
[2020-12-16] MEDS ORDERED: fentaNYL (PF) 50 MCG/ML 2 ML AMP ONE (07:12)
[2020-12-16] MEDS ORDERED: MIDAZOLAM 2 MG/2 ML VIAL ONE (07:12)
[2020-12-16] MEDS ORDERED: ePHEDrine SULFATE/0.9% NACL/PF 50 MG/5 ML SYRINGE IV ONE (07:12)
[2020-12-16] MEDS ORDERED: PROTAMINE SULFATE 10 MG/ML 5 ML VIAL IV ONE (07:12)
[2020-12-16] MEDS ORDERED: PHENYLEPHRINE-0.9% NACL SYG 1,000 MCG/10 ML SYRINGE ONE (07:12)
[2020-12-16] MEDS ORDERED: GLYCOPYRROLATE 0.2 MG/ML 2 ML VIAL ONE (07:12)
[2020-12-16] MEDS ORDERED: LIDOCAINE 1% INJ 10MG/ML (20 ML MDV) ONE (07:12)
[2020-12-16] MEDS ORDERED: NITROGLYCERIN-D5W PMX 50 MG/250 ML BOTTLE IV ONE (07:12)
[2020-12-16] MEDS ORDERED: SUCCINYLCHOLINE CHLORIDE 100 MG/5 ML SYR IV ONE (07:12)
[2020-12-16] MEDS ORDERED: HEPARIN SODIUM,PORCINE 10,000 UNIT/ML 1 ML VIAL ONE (07:12)
[2020-12-16] MEDS ORDERED: WATER FOR INJECTION, STERILE 10 ML VIAL IV ONE (07:12)
[2020-12-16] MEDS ORDERED: NEOSTIGMINE 1 MG/ML 10 ML VIAL ONE (07:12)
[2020-12-16] MEDS ORDERED: LIDOCAINE 1% INJ 10MG/ML (20 ML MDV) SQ ONE (08:01)
[2020-12-16] MEDS ORDERED: HEPARIN SODIUM (1,000 UNIT/ML) 2,000 UNIT in SODIUM CHLORIDE 0.9% 1,000 ML IRRIGATION ONE (08:02)
[2020-12-16] MEDS ORDERED: ceFAZolin 2,000 MG in SODIUM CHLORIDE 0.9% 500 ML IRRIGATION ONE (08:03)
[2020-12-16] MEDS ORDERED: LACTATED RINGERS 1,000 ML IV ONE ×2 (09:22→14:34)
[2020-12-16] MEDS ORDERED: BENZOCAINE/MENTHOL LOZENG 1 EACH LOZENGE MUCOUS MEM PRN (09:58)
[2020-12-16] MEDS ORDERED: HYDROcodone/APAP 5-325MG 1 EACH TAB PO PRN (09:58)
[2020-12-16] MEDS ORDERED: TRIMETHOBENZAMIDE 100 MG/ML 2 ML VIAL IM PRN (09:58)
[2020-12-16] MEDS ORDERED: MORPHINE SULFATE 2 MG/ML SYRINGE IVP PRN (09:58)
[2020-12-16] MEDS ORDERED: MAG HYDROX/AL HYDROX/SIMETH 30 ML CUP PO PRN (09:58)
--- NOTE | 2020-12-16 09:58 | P.OP ---
Date of Procedure: 12/16/20 Preoperative Diagnosis: Hemodynamically severe right internal carotid artery stenosis. Postoperative Diagnosis: Same. Procedure(s) Performed: Right carotid endarterectomy with patch angioplasty. Anesthesia: HUGO Surgeon: Robert Adams Estimated Blood Loss (ml): 50 IV fluids (ml): 700 Urine output (ml): 0 Pathology: other (Right carotid plaque) Condition: stable Disposition: ICU Indications for Procedure: Patient is a 80-year-old female who found be suffering from hemodynamically severe right internal carotid artery stenosis after experiencing episodes consistent with transient ischemic attack. Is felt to be a good candidate for carotid endarterectomy. The procedure, risk and benefits were discussed. Patient wished to proceed. Consent was signed. Description of Procedure: Patient was brought the upper and placed in supine position Mr. general endotracheal anesthesia delivered by the department anesthesiology. The patient received 2 g of intravenously administered Ancef in the perioperative phase for prophylactic antibiotic therapy. Patient's right neck supraclavicular and anterior chest wall areas were sterilely prepped and draped in usual manner. Skin incision was made along the anterior border sternocleidomastoid muscle and carried down through the subcu change tissues. Hemostasis was achieved using electrocautery. Platysmal muscle was divided. Dissection was continued along the anterior border sternocleidomastoid muscle. The facial vein was identified doubly ligated and divided. The carotid sheath was identified proximally. The common carotid artery was dissected free of investing tissues and encircled Vesseloops. Vagus nerve was identified and left undisturbed. The dissection was then carried to the level of the carotid bulb. The superior thyroid and external carotid arteries were identified and dissected free of investing tissues and encircled Vesseloops. The hypoglossal nerve was identified and left undisturbed. Dissection was then carried along the internal carotid artery to a point distal to the significant plaque formation. It was at this point the artery was encircled Vesseloops. The patient received intravenously administered heparin and ACT was drawn and found to be adequate. The Vesseloops surrounding the external and superior thyroid arteries as well as the internal and the common carotid arteries were drawn closed. Arteriotomy was made in the common carotid extended through the bulb level into the internal carotid artery. Stump pressure was obtained and was mean pressure was measured at 57 mmHg. Thus no shunt was felt necessary. Endarterectomy was begun at the common carotid level extended to the bulb level. A retraction endarterectomy was performed on the external carotid system and endarterectomy was carried into the internal carotid. The distal end did not feather off well. The specimen sent to pathology. The distal end of the endarterectomy plane was then tacked with 6-0 Prolene suture. The remaining luminal surface was inspected for any loose or free-floating material. None was identified. Patch angioplasty closure of the endarterectomy was performed with bovine pericardial patch and 6-0 Prolene suture placed in running fashion. Just prior to completion of the anastomotic line the internal carotid was backbled as was the external carotid and the common carotid was also flushed with no th rombus being retrieved. The arteriotomy closure was completed. Once again the internal carotid artery was backbled and then occluded at its origin. The Vesseloops surrounding the external carotid and superior thyroid arteries were released followed by release of the Vessel[place]ops surrounding the common carotid artery, thus flushing any potential debris into the external system. Flow was then restored into the internal system. 1 point of bleeding was identified and then this was controlled with 6-0 Prolene suture. The patient received 25 mg of protamine to reverse the heparin effect. Excellent pulse in the internal carotid artery distal to the endarterectomy plane was identified. The wound was inspected for hemostasis which was judged be adequate. The wound was then irrigated with antibiotic containing solution. Deep tissues were closed with 3-0 Vicryl. Dermis was closed with 4-0 Vicryl placed in running intradermal fashion and into was then applied followed by appropriate dressing. Patient tolerated procedure well. She awoke without apparent neurologic complication and was transferred to the recovery area in satisfactory and stable condition.
--- NOTE | 2020-12-16 12:08 | P.CNPUL ---
History of Present Illness Consult date: 12/16/20 Requesting physician: Robert Adams Reason for consult: other (Critical care management) Chief complaint: Right carotid stenosis History of present illness: This is a 80-year-old female patient with a history of previous tobacco dependence of 20 years at 1 pack per day quite in 1993, hypertension, hyperlipidemia, hypothyroidism, macular degeneration, basal cell carcinoma, spinal stenosis, psoriasis maintained on methotrexate for years, mild coronary artery disease. She presented here to the hospital today for an elective right carotid endarterectomy with patch angioplasty that was performed by Dr. Adams. We're consulted for ICU management. She is seen in consultation in the recovery room. She is awake, alert. Maintaining good O2 saturation up to 100% on room air. She was initiated on a nitroglycerin drip at her blood pressure has improved it is currently on hold. Blood pressure 135/42. Sinus rhythm. No neurologic focal deficits. Her only complaint is that of a sore throat. Right-sided surgical dressing dry and intact. Lactated Ringer's at 80 MLS per hour. To receive cefazolin. Review of Systems REVIEW OF SYSTEMS: CONSTITUTIONAL: Denies any recent significant weight loss or weight gain. EYES: Denies change in vision. EARS, NOSE, MOUTH, THROAT: Denies headaches, denies sore throat. CARDIOVASCULAR: Denies chest pain, palpitations or syncopal episodes. RESPIRATORY: Denies shortness of breath, cough, congestion or hemoptysis. GASTROINTESTINAL: Denies change in appetite, denies abdominal pain GENITOURINARY: Denies hematuria, denies infections. MUSKULOSKELETAL: Denies pain, denies swelling. INTEGUMENTARY: Denies rash, denies eczema. NEUROLOGICAL: Denies recent memory loss, no recent seizure activity. PSYCHIATRIC: Denies anxiety, denies depression. HEMATOLOGIC/LYMPHATIC: Denies anemia, denies enlarged lymph nodes. Past Medical History Past Medical History: Asthma, Cancer, Eye Disorder, Hyperlipidemia, Hypertension, Musculoskeletal Disorder, Osteoarthritis (OA), Pneumonia, Skin Disorder, Thyroid Disorder Additional Past Medical History / Comment(s): basal cell carcinoma on chest. Bilateral cataracts, alem eye macular degeneration, psoriasis, spinal stenosis with numbness to feet, hx pneumonia X2, last in 1995. rare PAC's and PVC's, rt carotid stenosis, past hx asthma, ulcer, "thickend gallbladder", History of Any Multi-Drug Resistant Organisms: None Reported Past Surgical History: Appendectomy, Breast Surgery, Tubal Ligation Additional Past Surgical History / Comment(s): Basal cell carcinoma removed from chest. D&C, face lift, left breast biopsy, fatty tumor removed Past Anesthesia/Blood Transfusion Reactions: Previous Problems w/ Anesthesia Additional Past Anesthesia/Blood Transfusion Reaction / Comment(s): "i had a problem with tubal ligation, I woke up with 5 nurses working around me". not sure what happened. states she heard a nurse say her BP was low Smoking Status: Former smoker - Past Family History Mother Family Medical History: No Reported History Medications and Allergies Home Medications Medication Instructions Recorded Confirmed Type metHOTREXate sodium [Methotrexate] 12.5 mg PO TH 05/08/14 12/14/20 History Folic Acid 0.8 mg PO DAILY 01/15/18 12/14/20 History Levothyroxine Sodium 25 mcg PO QAM 01/15/18 12/16/20 History Vit C/E/Zn/Coppr/Lutein/Zeaxan 1 each PO BID 01/15/18 12/14/20 History [Preservision Areds 2 Softgel] lisinopriL [Zestril] 20 mg PO HS 01/15/18 12/14/20 History Atorvastatin [Lipitor] 40 mg PO DAILY 11/22/20 12/14/20 History Clobetasol Propionate [Clobex 1 spray TOPICAL DAILY PRN 11/22/20 12/14/20 History [place] 0.05%] Mometasone Furoate Ointment 1 applicate TOPICAL DIRECTED PRN 11/22/20 12/14/20 History Clopidogrel [Plavix] 75 mg PO DAILY 12/14/20 12/14/20 History Allergies Allergy/AdvReac Type Severity Reaction Status Date / Time codeine Allergy Itching Verified 12/14/20 08:30 Physical Exam Vitals: Vital Signs Temp Pulse Pulse Resp BP BP Pulse Ox 12/16/20 11:30 56 L 16 132/42 102/50 100 12/16/20 11:16 55 L 16 127/51 105/52 100 12/16/20 11:15 59 L 16 130/40 107/53 100 12/16/20 11:00 61 16 133/43 107/53 100 12/16/20 10:46 64 16 149/49 107/55 100 12/16/20 10:30 61 16 146/48 110/55 100 12/16/20 10:15 64 16 147/49 112/56 100 12/16/20 10:01 66 16 135/45 104/57 100 12/16/20 09:47 97.1 F L 77 16 143/69 100 12/16/20 07:07 100 18 186/77 99 12/16/20 06:35 98.7 F 69 18 162/91 99 Intake and Output 12/15/20 12/16/20 12/16/20 22:59 06:59 14:59 Intake Total 300 1053.0 Output Total 300 Balance 300 753.0 Intake: IV 300 1053.0 Output: Urine 250 Estimated Blood Loss 50 Other: Weight 87.7 kg GENERAL EXAM: Alert, pleasant 80-year-old female, on 2 L nasal cannula, comfortable in no apparent distress. HEAD: Normocephalic. EYES: Normal reaction of pupils, equal size. NOSE: Clear with pink turbinates. THROAT: No erythema or exudates. NECK: Dressing to the right neck dry and intact. No masses, no JVD. CHEST: No chest wall deformity. LUNGS: Equal air entry with no crackles, wheeze, rhonchi or dullness. CVS: S1 and S2 normal with no audible murmur, regular rhythm. ABDOMEN: No hepatosplenomegaly, normal bowel sounds, no guarding or rigidity. SPINE: No scoliosis or deformity SKIN: No rashes CENTRAL NERVOUS SYSTEM: No focal deficits, tone is normal in all 4 extremities. EXTREMITIES: There is no peripheral edema. No clubbing, no cyanosis. Peripheral pulses are intact. Assessment and Plan Assessment: 1 Severe right carotid stenosis status post right carotid endarterectomy with patch angioplasty. Postoperative day #0 2 History of syncopal episode 3 Mild coronary artery disease per cardiac catheterization in November 2020 4 Hypertension 5 Hyperlipidemia 6 Hypothyroidism 7 Psoriasis, maintained on methotrexate Plan: The patient was seen and evaluated by Dr. Gale No noted neurological focal deficits Cefazolin per protocol Lovenox for DVT prophylaxis Dilaudid for pain control Continue neurologic assessments We will continue to follow and make further recommendations based on her clinical status I, the cosigning physician, performed a history & physical examination of the patient. Lungs sounds are clear. Maintaining good O2 saturations in the 90s on room air. I discussed the assessment and plan of care with my nurse practitioner, Nicolasa Osborne. I attest to the above consultation as dictated by her. Time with Patient: Greater than 30
[2020-12-16] MEDS ORDERED: ACETAMINOPHEN IV (For NPO) 1,000 MG/100 ML VIAL IVPB ONE (14:14)
[2020-12-16 20:42] LABS: Glucose,Whole Blood 147 mg/dL (75-99)
[2020-12-16] MEDS: ACETAMINOPHEN TAB 325 MG TAB PO PRN (21:13)
[2020-12-16] MEDS ORDERED: NALOXONE 0.4 MG/ML 1 ML VIAL IV PRN (21:15)
[2020-12-17 06:09] LABS: Basophils % (A) 0 %; Eosinophils # (A) 0.1 k/uL (0-0.7); Eosinophils % (A) 1 %; HCT 33.8 % (34.0-46.0); HGB 11.2 gm/dL (11.4-16.0); Lymphocytes # (A) 1.9 k/uL (1.0-4.8); Lymphocytes % (A) 19 %; MCH 31.5 pg (25.0-35.0); MCHC 33.3 g/dL (31.0-37.0); MCV 94.6 fL (80.0-100.0); Monocytes # (A) 0.9 k/uL (0-1.0); Monocytes % (A) 9 %; Neutrophils % (A) 70 %; Platelet Count 217 k/uL (150-450); RBC 3.57 m/uL (3.80-5.40); RDW 14.4 % (11.5-15.5)
[2020-12-17 06:23] LABS: ALT 16 U/L (4-34); AST 27 U/L (14-36); African American GFR (CKD) >90 (>60 ml/min/1.73 sqM); Albumin 3.4 g/dL (3.5-5.0); Alkaline Phosphatase 69 U/L (38-126); Anion Gap 6 mmol/L; Blood Urea Nitrogen 12 mg/dL (7-17); Calcium 8.5 mg/dL (8.4-10.2); Carbon Dioxide 26 mmol/L (22-30); Chloride 106 mmol/L (98-107); Glucose 100 mg/dL (74-99); Non-African American GFR(CKD) 81 (>60 ml/min/1.73 sqM); Potassium 3.9 mmol/L (3.5-5.1); Sodium 138 mmol/L (137-145); Total Bilirubin 0.6 mg/dL (0.2-1.3); Total Protein 5.8 g/dL (6.3-8.2)
--- NOTE | 2020-12-17 06:50 | P.PN ---
Subjective Progress Note Date: 12/17/20 This is a 80-year-old female patient with a history of previous tobacco depende nce of 20 years at 1 pack per day quite in 1993, hypertension, hyperlipidemia, hypothyroidism, macular degeneration, basal cell carcinoma, spinal stenosis, psoriasis maintained on methotrexate for years, mild coronary artery disease. She presented here to the hospital today for an elective right carotid endarterectomy with patch angioplasty that was performed by Dr. Adams. We're consulted for ICU management. She is seen in consultation in the recovery room. She is awake, alert. Maintaining good O2 saturation up to 100% on room air. She was initiated on a nitroglycerin drip at her blood pressure has improved it is currently on hold. Blood pressure 135/42. Sinus rhythm. No neurologic focal deficits. Her only complaint is that of a sore throat. Right- sided surgical dressing dry and intact. Lactated Ringer's at 80 MLS per hour. To receive cefazolin. On today's evaluation of 12/17/2020, the patient's surgical wound site over the neck area is clean. No hematoma. No bleeding. No focal neurological deficit. BP is under good control. The patient has no hypotension or hypertension. No headaches. No chest pain. Hemoglobin is 11.2. Rest of the blood work is all within normal limits. No other significant events overnight. She is on lactated Ringer at the rate of 80 mL an hour. She is pulse oxing 99-100% on room air oxygen. She is awake and alert. There are time will be removed and the patient potentially can be discharged home today. Objective - Vital Signs Vital signs: Vital Signs Temp 99 F 12/17/20 04:00 Pulse 66 12/17/20 06:00 Resp 20 12/17/20 06:00 BP 131/58 12/17/20 06:00 Pulse Ox 92 L 12/17/20 06:00 Intake & Output 12/16/20 12/16/20 12/17/20 06:59 18:59 06:59 Intake Total 300 1653.0 850 Output Total 1000 1200 Balance 300 653.0 -350 Weight 87.7 kg 88.3 kg Intake: IV 300 1653.0 560 Lactated Ringers 1,000 ml 560 @ 80 mls/hr IV .[id number] [facility] Rx#:[id number] Intake, IV Titration 290 Amount Lactated Ringers 1,000 ml 240 @ 80 mls/hr IV .[id number] [facility] Rx#:[id number] ceFAZolin 1,000 mg In 50 Sodium Chloride 0.9% 50 ml @ 100 mls/hr IVPB Q8HR [facility] Rx#:[id number] Output: Urine 950 1200 Estimated Blood Loss 50 ABP, PAP, CO, CI - Last Documented Arterial Blood Pressure 120/46 - Exam GENERAL EXAM: Alert, pleasant 80-year-old female, on room air HEAD: Normocephalic. EYES: Normal reaction of pupils, equal size. NOSE: Clear with pink turbinates. THROAT: No erythema or exudates. NECK: Dressing to the right neck dry and intact. No masses, no JVD. CHEST: No chest wall deformity. LUNGS: Equal air entry with no crackles, wheeze, rhonchi or dullness. CVS: S1 and S2 normal with no audible murmur, regular rhythm. ABDOMEN: No hepatosplenomegaly, normal bowel sounds, no guarding or rigidity. SPINE: No scoliosis or deformity SKIN: No rashes CENTRAL NERVOUS SYSTEM: No focal deficits, tone is normal in all 4 extremities. EXTREMITIES: There is no peripheral edema. No clubbing, no cyanosis. Peripheral pulses are intact. - Labs CBC & Chem 7: 12/17/20 04:50 12/17/20 04:50 Labs: Abnormal Lab Results - Last 24 Hours (Table) 12/16/20 12/17/20 12/17/20 Range/Units 20:40 04:50 04:50 RBC 3.57 L (3.80-5.40) m/uL Hgb 11.2 L (11.4-16.0) gm/dL Hct 33.8 L (34.0-46.0) % Glucose 100 H (74-99) mg/dL POC Glucose (mg/dL) 147 H (75-99) mg/dL Total Protein 5.8 L (6.3-8.2) g/dL Albumin 3.4 L (3.5-5.0) g/dL Assessment and Plan Plan: 1 Severe right carotid stenosis status post right carotid endarterectomy with patch angioplasty. Postoperative day #1 and currently on aspirin 2 History of syncopal episode 3 Mild coronary artery disease per cardiac catheterization in November 2020 4 Hypertension, 5 Hyperlipidemia 6 Hypothyroidism 7 Psoriasis, maintained on methotrexate Plan: No noted neurological focal deficits Cefazolin per protocol Lovenox for DVT prophylaxis Dilaudid for pain control Continue neurologic assessments the patient is neurologically intact Discontinue the arterial line Resume her levothyroxine Resume Plavix at time of discharge Resume lisinopril Possible discharge today.
[2020-12-17] MEDS: PHENYLEPHRINE 40 MG in SODIUM CHLORIDE 0.9% 250 ML IV SCH (08:33)
[2020-12-17] MEDS: LACTATED RINGERS 1,000 ML IV SCH (08:35)
[2020-12-17] MEDS: ACETAMINOPHEN TAB 325 MG TAB PO PRN (08:50)
[2020-12-17 08:57] VITALS: TEMP 98.6
[2020-12-17] MEDS ORDERED: ATORVASTATIN 40 MG TAB PO SCH (09:00)
[2020-12-17] MEDS ORDERED: ASPIRIN 81 MG PO SCH (09:00)
[2020-12-17] MEDS ORDERED: LEVOTHYROXINE 25 MCG TAB PO SCH (09:00)
[2020-12-17] MEDS ORDERED: ENOXAPARIN 40 MG/0.4 ML SYRINGE SQ SCH (09:00)
--- NOTE | 2020-12-17 09:31 | P.DS ---
Providers Date of admission: 12/16/20 05:44 Attending physician: Robert Adams DO Consults: 12/16/20 09:58 Consult Physician Routine Consulting Provider: Ihsan Gale Consult Reason/Comments: medical care Do you want consulting provider notified?: Yes Primary care physician: Kathy Nuvance Health Course: This is a pleasant 72-year-old female patient with a history of severe right internal carotid artery stenosis, previous tobacco dependency, hypertension, hyperlipidemia, hypothyroidism, macular degeneration, basal cell carcinoma, coronary artery disease, and psoriasis who presented to the hospital yesterday for an elective outpatient right internal carotid endarterectomy with patch angioplasty. She is postop day #1 for right carotid endarterectomy with patch angioplasty. She is hemodynamically stable. She denies any focal deficits, shortness of breath, or chest pain. Right neck with dressing that is clean dry and intact. Assessment: General appearance: The patient is alert, oriented, in no acute distress. HET: Head is normocephalic and atraumatic. Pupils are equal and reactive. Oropharynx is clear without lesions. Neck: Supple without lymphadenopathy. Trachea midline. Right carotid endarterectomy site with dressing clean dry and intact. Close site well approximated with glue with no signs of hematoma noted, no active bleeding. Heart: S1 S2. Regular rate and rhythm. Lungs: No crackles or wheezes are heard. Abdomen: Soft, nontender, nondistended. Extremities: Normal skin color and turgor. No cyanosis, rash, ulceration, clubbing, or edema. Radial pulses +2 bilaterally Neurological: No focal deficits. Strength and sensation are grossly intact. Assessment: 1. Postop day #1 right carotid endarterectomy with patch angioplasty 2. Severe right internal carotid artery stenosis 3. Previous tobacco dependence 4. Hypertension 5. Hyperlipidemia 6. Hypothyroidism 7. History of Coronary artery disease Plan: Patient may be discharged home. Instructed no showering for 24 hours. No heavy lifting or strenuous activity. Patient to resume Plavix, statin, and aspirin. Patient to follow-up with Dr. Carrizales in 1-2 weeks. The impression and plan of care has been dictated as directed. Dr. Carrizales I performed a history and examination of this patient, discussed the same with the dictator. I agree with the dictator's note ,documented as a scribe. Any additional findings or plans will be noted. Procedures: Right Carotid endarterectomy with patch angioplasty Patient Condition at Discharge: Good Plan - Discharge Summary Discharge Rx Participant: No New Discharge Prescriptions: New Aspirin 162 mg PO DAILY #30 chew Continue metHOTREXate sodium [Methotrexate] 12.5 mg PO TH Levothyroxine Sodium 25 mcg PO QAM Folic Acid 0.8 mg PO DAILY lisinopriL [Zestril] 20 mg PO HS Vit C/E/Zn/Coppr/Lutein/Zeaxan [Preservision Areds 2 Softgel] 1 each PO BID Clobetasol Propionate [Clobex [place] 0.05%] 1 spray TOPICAL DAILY PRN PRN Reason: Rash Atorvastatin [Lipitor] 40 mg PO DAILY Mometasone Furoate Ointment 1 applicate TOPICAL DIRECTED PRN PRN Reason: Rash Clopidogrel [Plavix] 75 mg PO DAILY Discharge Medication List metHOTREXate sodium [Methotrexate] 12.5 mg PO TH 05/08/14 [History] Folic Acid 0.8 mg PO DAILY 01/15/18 [History] Levothyroxine Sodium 25 mcg PO QAM 01/15/18 [History] Vit C/E/Zn/Coppr/Lutein/Zeaxan [Preservision Areds 2 Softgel] 1 each PO BID 01/15/18 [History] lisinopriL [Zestril] 20 mg PO HS 01/15/18 [History] Atorvastatin [Lipitor] 40 mg PO DAILY 11/22/20 [History] Clobetasol Propionate [Clobex [place] 0.05%] 1 spray TOPICAL DAILY PRN 11/22/20 [History] Mometasone Furoate Ointment 1 applicate TOPICAL DIRECTED PRN 11/22/20 [History] Clopidogrel [Plavix] 75 mg PO DAILY 12/14/20 [History] Aspirin 162 mg PO DAILY #30 chew 12/17/20 [Rx] Follow up Appointment(s)/Referral(s): Robert Adams DO [Doctor of Osteopathic Medicine] - 2 Weeks Patient Instructions/Handouts: Carotid Endarterectomy (DC) Activity/Diet/Wound Care/Special Instructions: Follow your regular diet. Dr. Adams's office is closed on Fridays. Please make your followup appointment on Sunday!
[2020-12-17 10:17] VITALS: BP 142/70; PULSE 69; RESP 15
[2020-12-17] MEDS ORDERED: lisinopriL 20 MG TAB PO SCH (21:00)
== END 2020-12-17 11:50 | disposition home or self-care (01) | DRG 39 ==
LOC: 2ORMAIN 05:44 → 2SICU 20:28
PROVIDERS: ADMIT Surgery; ATTEND Surgery
PROC: 03CK0ZZ Extirpation of Matter from Right Internal Carotid Artery, Open Approach (ICD-10-PCS; principal; 2020-12-16 07:30)
PROC: 03UK0JZ Supplement Right Internal Carotid Artery with Synthetic Substitute, Open Approach (ICD-10-PCS; principal; 2020-12-16 07:30)
DX: I65.21 Occlusion and stenosis of right carotid artery (principal); E03.9 Hypothyroidism, unspecified; I10 Essential (primary) hypertension; E78.5 Hyperlipidemia, unspecified; I25.10 Atherosclerotic heart disease of native coronary artery without angina pectoris; J45.909 Unspecified asthma, uncomplicated; L40.9 Psoriasis, unspecified; H35.30 Unspecified macular degeneration; M48.00 Spinal stenosis, site unspecified; Z79.02 Long term (current) use of antithrombotics/antiplatelets; Z79.899 Other long term (current) drug therapy; Z87.891 Personal history of nicotine dependence; Z85.828 Personal history of other malignant neoplasm of skin; Z90.49 Acquired absence of other specified parts of digestive tract; Z87.19 Personal history of other diseases of the digestive system; Z98.890 Other specified postprocedural states; Z83.3 Family history of diabetes mellitus; Z82.79 Family history of other congenital malformations, deformations and chromosomal abnormalities; Z82.49 Family history of ischemic heart disease and other diseases of the circulatory system; Z86.73 Personal history of transient ischemic attack (TIA), and cerebral infarction without residual deficits; Z87.01 Personal history of pneumonia (recurrent); Z98.51 Tubal ligation status; Z87.2 Personal history of diseases of the skin and subcutaneous tissue; Z88.5 Allergy status to narcotic agent
CPT/HCPCS: 36415; 80053; 85025; 85027; 86850; 86900; 86901; 88304

== ENCOUNTER → 2021-04-12 | Outpatient (CLI) | payer MEDICARE, BC ==
[2021-04-12 19:26] LABS: HCT 38.1 % (37.2-46.3); HGB 12.8 g/dL (12.0-15.0); MCH 32.3 pg (27.0-32.0); MCHC 33.6 g/dL (32.0-37.0); MCV 96.2 fL (80.0-97.0); Mean Platelet Volume 11.7 fL (9.5-12.2); Platelet Count 276 X 10*3/uL (140-440); RBC 3.96 X 10*6/uL (4.10-5.20); RDW 13.6 % (11.5-14.5); WBC 8.23 X 10*3/uL (4.50-10.00)
[2021-04-13 01:16] LABS: ALT 22 U/L (8-44); AST 32 U/L (13-35)
== END | disposition home or self-care (01) ==
LOC: LABWHC1 11:49
PROVIDERS: ATTEND Dermatology Dermatopathology
DX: L40.0 Psoriasis vulgaris (principal); Z79.899 Other long term (current) drug therapy
CPT/HCPCS: 36415; 84450; 84460; 85027

== ENCOUNTER → 2021-05-16 | Outpatient (CLI) | payer MEDICARE, BC ==
--- NOTE | 2021-05-17 10:16 | MM ---
Reason for exam: screening (asymptomatic). Last mammogram was performed 1 year and 2 months ago. History: Patient is postmenopausal and has history of other cancer at age 67. Family history of breast cancer in maternal cousin at age 69. Excisional biopsy of the left breast, 2004. Took hormonal contraceptives for 9 years beginning at age 22. Physical Findings: A clinical breast exam by your physician is recommended on an annual basis and results should be correlated with mammographic findings. MG 3D Screening Mammo W/Cad Bilateral CC and MLO view(s) were taken. Prior study comparison: March 10, 2020, bilateral MG 3d screening mammo w/cad. November 13, 2018, bilateral MG 3d screening mammo w/cad. There are scattered fibroglandular densities. There is no discrete abnormality. No significant changes when compared with prior studies. ASSESSMENT: Negative, BI-RAD 1 RECOMMENDATION: Routine screening mammogram of both breasts in 1 year.
== END | disposition home or self-care (01) ==
LOC: RADMAMWWP 13:34
PROVIDERS: ATTEND Family Medicine
DX: Z12.31 Encounter for screening mammogram for malignant neoplasm of breast (principal); Z78.0 Asymptomatic menopausal state; Z80.3 Family history of malignant neoplasm of breast
CPT/HCPCS: 77063; 77067

== ENCOUNTER → 2021-07-26 | Outpatient (CLI) | payer MEDICARE, BC ==
[2021-07-26 19:50] LABS: Basophils # (A) 0.06 X 10*3/uL (0.00-0.10); Basophils % (A) 0.8 %; Eosinophils # (A) 0.22 X 10*3/uL (0.04-0.35); HCT 38.4 % (37.2-46.3); HGB 12.3 g/dL (12.0-15.0); Lymphocytes # (A) 1.66 X 10*3/uL (0.90-5.00); MCH 31.5 pg (27.0-32.0); MCV 98.2 fL (80.0-97.0); Mean Platelet Volume 11.8 fL (9.5-12.2); Monocytes % (A) 6.9 %; Neutrophils # (A) 4.77 X 10*3/uL (1.80-7.70); Platelet Count 245 X 10*3/uL (140-440); RBC 3.91 X 10*6/uL (4.10-5.20); RDW 13.4 % (11.5-14.5); WBC 7.23 X 10*3/uL (4.50-10.00)
[2021-07-26 19:54] LABS: African American GFR (CKD) 83.4 (60.0-200.0); Albumin 4.4 g/dL (3.8-4.9); Albumin/Globulin Ratio 1.97 (1.60-3.17); Anion Gap 12.5 mmol/L (4.00-12.00); BUN/Creat Ratio 17.75 Ratio (12.00-20.00); Blood Urea Nitrogen 13.9 mg/dL (9.0-27.0); Calcium 9.4 mg/dL (8.7-10.3); Carbon Dioxide 24.7 mmol/L (21.6-31.8); Chol/HDL Ratio 3.18 Ratio; Globulin 2.3 g/dL (1.6-3.3); HDL Cholesterol 52.5 mg/dL (40.00-60.00); LDL Cholesterol,Calculated 81.9 mg/dL (0.0-131.0); Potassium 4.6 mmol/L (3.5-5.5); Total Bilirubin 0.4 mg/dL (0.30-1.20); Total Protein 6.7 g/dL (6.2-8.2); VLDL Calculation 32.6 mg/dL (5.00-40.00)
== END | disposition home or self-care (01) ==
LOC: LABWHC1 11:36
PROVIDERS: ATTEND Physician Assistant
DX: E03.9 Hypothyroidism, unspecified (principal); D64.9 Anemia, unspecified; I10 Essential (primary) hypertension; E78.5 Hyperlipidemia, unspecified; L40.0 Psoriasis vulgaris; Z79.899 Other long term (current) drug therapy
CPT/HCPCS: 36415; 80053; 80061; 84443; 85025; 86480

== ENCOUNTER → 2021-10-06 | Outpatient (CLI) | payer MEDICARE, BC | END | disposition home or self-care (01) | LOC: LABWHC1 13:59 | PROVIDERS: ATTEND Surgery Plastic and Reconstructive Surgery | DX: Z20.822 Contact with and (suspected) exposure to COVID-19 (principal) | CPT/HCPCS: U0003; C9803; U0005 ==

== ENCOUNTER → 2021-10-28 | Outpatient (CLI) | payer MEDICARE, BC | END | disposition home or self-care (01) | LOC: LABPAT 13:39 | PROVIDERS: ATTEND Surgery Plastic and Reconstructive Surgery | DX: Z20.822 Contact with and (suspected) exposure to COVID-19 (principal) | CPT/HCPCS: U0003; C9803; U0005 ==

== ENCOUNTER 2021-11-02 08:19 | Day surgery (SDC) | payer MEDICARE, BC ==
[2021-10-31 13:12] VITALS: BMI 30.9
--- NOTE | 2021-11-02 07:45 | P.GSHP ---
History of Present Illness H&P Date: 11/02/21 CHIEF COMPLAINT: Blood in stool HISTORY OF PRESENT ILLNESS: The patient is a 81-year-old female who presents for colon screen. Lower endoscopy was offered for further evaluation and management. PAST MEDICAL HISTORY: Please see list. PAST SURGICAL HISTORY: Please see list. MEDICATIONS: Please see list. ALLERGIES: Please see list. SOCIAL HISTORY: No illicit drug use FAMILY HISTORY: No reports of Crohn disease or ulcerative colitis. REVIEW OF ORGAN SYSTEMS: CONSTITUTIONAL: No reports of fevers or chills. PHYSICAL EXAM: VITAL SIGNS: Stable GENERAL: Well-developed pleasant in no acute distress. HEENT: No scleral icterus. Extraocular movements grossly intact. Moist buccal mucosa. NECK: Supple without lymphadenopathy. CHEST: Unlabored respirations. Equal bilateral excursions. CARDIOVASCULAR: Regular rate and rhythm. Distal 2+ pulses. ABDOMEN: Soft, nontender, nondistended. MUSCULOSKELETAL: No clubbing, cyanosis, or edema. ASSESSMENT: 1. Blood in stools PLAN: 1. 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 History of Any Multi-Drug Resistant Organisms: None Reported Past Surgical History: Appendectomy, Breast Surgery, Heart Catheterization, Tubal Ligation Additional Past Surgical History / Comment(s): right carotid endarterectomy, cataracts., Basal cell carcinoma removed from chest. D&C, face lift, left breast biopsy, fatty tumor removed Past Anesthesia/Blood Transfusion Reactions: Previous Problems w/ Anesthesia Additional Past Anesthesia/Blood Transfusion Reaction / Comment(s): low bloodpressure. Smoking Status: Former smoker - Past Family History Mother Family Medical History: No Reported History Medications and Allergies Home Medications Medication Instructions Recorded Confirmed Type metHOTREXate sodium [Methotrexate] 12.5 mg PO TH 05/08/10/31/21 History Levothyroxine Sodium 25 mcg PO QAM 01/15/18 10/31/21 History Vit C/E/Zn/Coppr/Lutein/Zeaxan 1 each PO BID 01/15/18 10/31/21 History [Preservision Areds 2 Softgel] lisinopriL [Zestril] 20 mg PO QAM 01/15/18 10/31/21 History Ascorbic Acid [Vitamin C] 1,000 mg PO PC-LUNCH 10/06/21 10/31/21 History Aspirin 81 mg PO DAILY 10/06/21 10/31/21 History Atorvastatin [Lipitor] 80 mg PO DAILY 10/06/21 10/31/21 History Fish Oil/Dha/Epa [Fish Oil 1,200 1 each PO BID 10/06/21 10/31/21 History mg Fish Oil] Folic Acid 0.8 mg PO HS 10/06/21 10/31/21 History Lisinopril [Zestril] 10 mg PO HS 10/06/21 10/31/21 History Vitamin E [Vitamin E (1000 Iu = 1,250 unit PO BID 10/06/21 10/31/21 History 450 MG)] amLODIPine [Norvasc] 2.5 mg PO DAILY 10/06/21 10/31/21 History Allergies Allergy/AdvReac Type Severity Reaction Status Date / Time codeine Allergy Itching Verified 10/31/21 13:07
[~2021-11-02 08:19] MED LIST changes: -ALPRAZolam 0.25 MG TAB PO PRN; -ALPRAZolam 0.5 MG TAB PO PRN; -ASPIRIN 325 MG TAB PO ONE; -ATORVASTATIN 80 MG TAB PO ONE; +LACTATED RINGERS 1,000 ML IV SCH; +LIDOCAINE 1% (10MG/ML) FOR IV START INTRADERMA PRN; -NITROGLYCERIN SL TABS 0.4 MG TAB SUBLINGUAL PRN; -SODIUM CHLORIDE 0.9% 1,000 ML in EMPTY BAG 1 BAG IV ONE
[2021-11-02 08:54] VITALS: TEMP 98.4
[2021-11-02] MEDS ORDERED: PROPOFOL 10 MG/ML 20 ML VIAL IV ONE (09:32)
--- NOTE | 2021-11-02 10:09 | P.PCN ---
Date of Procedure: 11/02/21 Description of Procedure: PREOPERATIVE DIAGNOSIS: Abnormal fecal occult test for blood in stool POSTOPERATIVE DIAGNOSIS: Severe sigmoid diverticulosis Internal/external hemorrhoid, grade 2 Pandiverticulosis OPERATION: Colonoscopy to the cecum, ileocecal valve and appendiceal orifice. SURGEON: Lucina Mata MD. ANESTHESIA: MAC. INDICATIONS: The patient is a 81-year-old female who presents with abnormal fecal occult stool test for blood. Benefits and risks were described and informed consent wa s obtained. DESCRIPTION OF PROCEDURE: The patient had undergone Sutab prep. The patient had been brought into the operating room and laid in the left lateral decubitus position. After adequate intravenous sedation, the rectum was examined with 2% lidocaine jelly. External hemorrhoids were encountered. The rectal tone was within normal limits. No lesions were palpated in the rectal vault. An Olympus colonoscope was advanced until the cecum, ileocecal valve and appendiceal orifice were clearly viewed. The prep was excellent. Severe sigmoid diverticulosis with pandiverticulosis was encountered. No colonic polyps were found. No evidence of focal colitis was found. Retroflexion of the scope demonstrated grade 2 internal hemorrhoids without active bleeding or inflammation. The colon was desufflated. The patient had tolerated the procedure well. Withdrawal time was over 6 minutes. FINDINGS: Aronchick preparation quality scale 1 (1-5) Internal hemorrhoids, grade 2 External prolapsed hemorrhoids, grade 2 Severe sigmoid diverticulosis with pandiverticulosis No arteriovenous malformations. No adenomatous polyps. No focal colitis. RECOMMENDATIONS: Lower endoscopy as needed Plan - Discharge Summary New Discharge Prescriptions: Continue metHOTREXate sodium [Methotrexate] 12.5 mg PO TH Levothyroxine Sodium 25 mcg PO QAM lisinopriL [Zestril] 20 mg PO QAM Vit C/E/Zn/Coppr/Lutein/Zeaxan [Preservision Areds 2 Softgel] 1 each PO BID Lisinopril [Zestril] 10 mg PO HS amLODIPine [Norvasc] 2.5 mg PO DAILY Folic Acid 0.8 mg PO HS Fish Oil/Dha/Epa [Fish Oil 1,200 mg Fish Oil] 1 each PO BID Atorvastatin [Lipitor] 80 mg PO DAILY Aspirin 81 mg PO DAILY Vitamin E [Vitamin E (1000 Iu = 450 MG)] 1,250 unit PO BID Ascorbic Acid [Vitamin C] 1,000 mg PO PC-LUNCH Discharge Medication List metHOTREXate sodium [Methotrexate] 12.5 mg PO TH 05/08/14 [History] Levothyroxine Sodium 25 mcg PO QAM 01/15/18 [History] Vit C/E/Zn/Coppr/Lutein/Zeaxan [Preservision Areds 2 Softgel] 1 each PO BID 01/15/18 [History] lisinopriL [Zestril] 20 mg PO QAM 01/15/18 [History] Ascorbic Acid [Vitamin C] 1,000 mg PO PC-LUNCH 10/06/21 [History] Aspirin 81 mg PO DAILY 10/06/21 [History] Atorvastatin [Lipitor] 80 mg PO DAILY 10/06/21 [History] Fish Oil/Dha/Epa [Fish Oil 1,200 mg Fish Oil] 1 each PO BID 10/06/21 [History] Folic Acid 0.8 mg PO HS 10/06/21 [History] Lisinopril [Zestril] 10 mg PO HS 10/06/21 [History] Vitamin E [Vitamin E (1000 Iu = 450 MG)] 1,250 unit PO BID 10/06/21 [History] amLODIPine [Norvasc] 2.5 mg PO DAILY 10/06/21 [History] Follow up Appointment(s)/Referral(s): Lucina Mata MD [STAFF PHYSICIAN] - As Needed Patient Instructions/Handouts: Colonoscopy (DC), Diverticulosis (DC), Diverticulosis Diet (GEN) Activity/Diet/Wound Care/Special Instructions: Colonoscopy as needed Discharge Disposition: HOME SELF-CARE
[2021-11-02 10:18] VITALS: BP 118/65; PULSE 72; RESP 16
== END 2021-11-02 10:36 | disposition home or self-care (01) ==
LOC: ORWHC2ENDO 08:19
PROVIDERS: ATTEND Surgery Plastic and Reconstructive Surgery
DX: K57.30 Diverticulosis of large intestine without perforation or abscess without bleeding (principal); K64.1 Second degree hemorrhoids; K64.8 Other hemorrhoids; E78.5 Hyperlipidemia, unspecified; I10 Essential (primary) hypertension; M19.90 Unspecified osteoarthritis, unspecified site; E07.9 Disorder of thyroid, unspecified; Z87.01 Personal history of pneumonia (recurrent); I35.0 Nonrheumatic aortic (valve) stenosis; R01.1 Cardiac murmur, unspecified; Z85.828 Personal history of other malignant neoplasm of skin; H35.30 Unspecified macular degeneration; L40.9 Psoriasis, unspecified; I49.1 Atrial premature depolarization; I49.3 Ventricular premature depolarization; R20.0 Anesthesia of skin; Z98.51 Tubal ligation status; Z98.49 Cataract extraction status, unspecified eye; Z98.890 Other specified postprocedural states; Z87.891 Personal history of nicotine dependence; Z79.890 Hormone replacement therapy; Z79.899 Other long term (current) drug therapy; Z79.82 Long term (current) use of aspirin; Z88.5 Allergy status to narcotic agent; I25.10 Atherosclerotic heart disease of native coronary artery without angina pectoris; M48.00 Spinal stenosis, site unspecified
CPT/HCPCS: 45378; J2704

== ENCOUNTER → 2022-02-02 | Outpatient (CLI) | payer MEDICARE, BC ==
[2022-02-02 17:49] LABS: Basophils # (A) 0.05 X 10*3/uL (0.00-0.10); Basophils % (A) 0.7 %; Eosinophils # (A) 0.21 X 10*3/uL (0.04-0.35); Eosinophils % (A) 2.9 %; HCT 38.5 % (37.2-46.3); HGB 12.3 g/dL (12.0-15.0); Immature Grans, Automated 0.4 %; Lymphocytes # (A) 1.67 X 10*3/uL (0.90-5.00); Lymphocytes % (A) 23.2 %; MCH 31.1 pg (27.0-32.0); MCHC 31.9 g/dL (32.0-37.0); MCV 97.2 fL (80.0-97.0); Mean Platelet Volume 11.5 fL (9.5-12.2); Monocytes # (A) 0.58 X 10*3/uL (0.20-1.00); Monocytes % (A) 8.1 %; NRBC Per 100 WBC 0 /100 WBCS (0.0-0.0); Neutrophils # (A) 4.66 X 10*3/uL (1.80-7.70); Neutrophils % (A) 64.7 %; Platelet Count 261 X 10*3/uL (140-440); RBC 3.96 X 10*6/uL (4.10-5.20); RDW 13.3 % (11.5-14.5)
[2022-02-02 18:31] LABS: African American GFR (CKD) 82.8 (60.0-200.0); Albumin 4.2 g/dL (3.8-4.9); Albumin/Globulin Ratio 1.47 (1.60-3.17); BUN/Creat Ratio 14.97 Ratio (12.00-20.00); Blood Urea Nitrogen 11.8 mg/dL (9.0-27.0); Calcium 9.3 mg/dL (8.7-10.3); Carbon Dioxide 25.7 mmol/L (20.0-27.5); Globulin 2.9 g/dL (1.6-3.3); Non-African American GFR(CKD) 71.4 (60.0-200.0); Potassium 4.6 mmol/L (3.5-5.5); Total Bilirubin 0.4 mg/dL (0.30-1.20); Total Protein 7.1 g/dL (6.2-8.2)
== END | disposition home or self-care (01) ==
LOC: LABWHC1 11:16
PROVIDERS: ATTEND Physician Assistant
DX: L40.0 Psoriasis vulgaris (principal); Z79.899 Other long term (current) drug therapy
CPT/HCPCS: 36415; 80053; 85025

== ENCOUNTER → 2022-05-11 | Outpatient (CLI) | payer MEDICARE, BC ==
[2022-05-11 14:28] LABS: Basophils # (A) 0.06 X 10*3/uL (0.00-0.10); Basophils % (A) 0.9 %; Eosinophils # (A) 0.31 X 10*3/uL (0.04-0.35); Eosinophils % (A) 4.4 %; HCT 39.4 % (37.2-46.3); HGB 13.1 g/dL (12.0-15.0); Immature Grans, Automated 0.3 %; Lymphocytes # (A) 1.92 X 10*3/uL (0.90-5.00); Lymphocytes % (A) 27.3 %; MCH 31.5 pg (27.0-32.0); MCHC 33.2 g/dL (32.0-37.0); MCV 94.7 fL (80.0-97.0); Mean Platelet Volume 11.9 fL (9.5-12.2); Monocytes # (A) 0.59 X 10*3/uL (0.20-1.00); Monocytes % (A) 8.4 %; NRBC Per 100 WBC 0 /100 WBCS (0.0-0.0); Neutrophils # (A) 4.14 X 10*3/uL (1.80-7.70); Neutrophils % (A) 58.7 %; Platelet Count 226 X 10*3/uL (140-440); RBC 4.16 X 10*6/uL (4.10-5.20); RDW 12.6 % (11.5-14.5); WBC 7.04 X 10*3/uL (4.50-10.00)
[2022-05-11 15:00] LABS: ALT 22 U/L (8-44); AST 25 U/L (13-35); African American GFR (CKD) 69.5 (60.0-200.0); Albumin 4.5 g/dL (3.8-4.9); Albumin/Globulin Ratio 1.72 (1.60-3.17); Alkaline Phosphatase 111 U/L (41-126); BUN/Creat Ratio 24.53 Ratio (12.00-20.00); Blood Urea Nitrogen 22.2 mg/dL (9.0-27.0); Calcium 9.2 mg/dL (8.7-10.3); Carbon Dioxide 26.3 mmol/L (20.0-27.5); Chloride 105 mmol/L (96-109); Globulin 2.6 g/dL (1.6-3.3); Glucose 99 mg/dL (70-110); LDL Cholesterol,Calculated 79.1 mg/dL (0.0-131.0); Potassium 4.5 mmol/L (3.5-5.5); Sodium 142 mmol/L (135-145); Total Protein 7.1 g/dL (6.2-8.2)
== END | disposition home or self-care (01) ==
LOC: LABWHC1 09:56
PROVIDERS: ATTEND Family Medicine
DX: Z00.00 Encounter for general adult medical examination without abnormal findings (principal)
CPT/HCPCS: 36415; 80053; 80061; 82306; 84439; 84443; 85025

== ENCOUNTER → 2022-08-07 | Outpatient (CLI) | payer MEDICARE, BC ==
--- NOTE | 2022-08-07 15:51 | BD ---
EXAMINATION TYPE: Axial Bone Density DATE OF EXAM: 08/07/2022 COMPARISON: NONE CLINICAL HISTORY: 82 years year old Female. ICD-10 CODE: Z78.0 ASYMPTOMATIC MENOPAUSAL STATE Height: 63.5195.5 Weight: FRAX RISK QUESTIONS: Alcohol (3 or more units per day): NO Family History (Parent hip fracture): NO Glucocorticoids (More than 3mos): NO History of Fracture in Adulthood: NO Secondary Osteoporosis: 1. Type 1 Diabetes: NO 2. Hyperthyroidism: NO 3. Menopause before 45: NO 4. Malnutrition: NO 5. Chronic liver disease: NO Rheumatoid Arthritis: NO Current Tobacco Use: NO RISK FACTORS HISTORY OF: Hip Fracture (Right/Left): NO Spine Fracture: NO History of Wrist Fracture: NO Surgery to Spine/Hip(right/left)/Wrist (right/left): NO Family History of Osteoporosis: NO Active: YES Diet low in dairy products/other sources of calcium: NO Postmenopausal woman: YES Take estrogen and/or progesterone medications: NO Lost more than 2 inches in height since high school: NO Frequent falls: NO Poor Health: NO Hyperparathyroidism: NO Adrenal Insufficiency: NO MEDICATIONS: Prednisone or other steroids: NO Thyroid Medications:LEVOTHYROXIN How Long: PAST 8-10 YEARS Osteoporosis Medications: NO Additional Medications: CHOLESTEROL MEDS, BP MEDS, VIT C, EXAM MEASUREMENTS: Bone mineral densitometry was performed using the BioMax System. Bone mineral density as measured about the Lumbar spine is: ----- L1-L4(G/cm2): 1.429 T Score Values are as follows: ----- L1: 0.2 ----- L2: 2.2 ----- L3: 4.6 ----- L4: 1.9 ----- L1-L4: 2.1 BASELINE STUDY Bone mineral density about the R hip (g/cm2): 0.980 Bone mineral density about the L hip (g/cm2): 0.927 T Score values are as follows: -----R Neck: -0.4 -----L Neck: -0.8 -----R Total: 0.0 -----L Total: -0.1 BASELINE STUDY FRAX%s: The graph provided illustrates a 10.3% chance for a major osteoporotic fx and a 1.8% chance f or the hips probability for fx in 10 years time. IMPRESSION: Normal (Values between +1 and -1 indicate normal bone mass). Consider repeating this study in 5 year s or sooner if there is some new clinical indication. NOTE: T-SCORE=SD OF THE YOUNG ADULT MEAN.
== END | disposition home or self-care (01) ==
LOC: RADBDWWP 14:01
PROVIDERS: ATTEND Family Medicine
DX: Z78.0 Asymptomatic menopausal state (principal)
CPT/HCPCS: 77080

== ENCOUNTER → 2022-08-15 | Outpatient (CLI) | payer MEDICARE, BC ==
[2022-08-15 20:13] LABS: African American GFR (CKD) 71.7 (60.0-200.0); BUN/Creat Ratio 19.05 Ratio (12.00-20.00); Blood Urea Nitrogen 16.8 mg/dL (9.0-27.0); Calcium 9.5 mg/dL (8.7-10.3); Carbon Dioxide 26.1 mmol/L (20.0-27.5); Chloride 102 mmol/L (96-109); Chol/HDL Ratio 2.98 Ratio; Glucose 86 mg/dL (70-110); LDL Cholesterol,Calculated 80.1 mg/dL (0.0-131.0); Magnesium 2.2 mg/dL (1.5-2.4); Non-African American GFR(CKD) 61.9 (60.0-200.0); Sodium 140 mmol/L (135-145)
== END | disposition home or self-care (01) ==
LOC: LABWHC1 10:16
PROVIDERS: ATTEND Physician Assistant
DX: L40.0 Psoriasis vulgaris (principal); Z79.899 Other long term (current) drug therapy
CPT/HCPCS: 36415; 80048; 80061; 83735; 84443; 86480

== ENCOUNTER → 2022-08-15 | Outpatient (CLI) | payer MEDICARE, BC | END | disposition home or self-care (01) | LOC: LABWHC1 10:14 | PROVIDERS: ATTEND Internal Medicine Clinical Cardiac Electrophysiology | DX: Z53.9 Procedure and treatment not carried out, unspecified reason (principal) ==

== ENCOUNTER → 2023-06-07 | Outpatient (CLI) | payer MEDICARE, BC ==
[2023-06-07 15:10] LABS: ALT 16 U/L (8-44); AST 23 U/L (13-35); Albumin 4.5 d/dL (3.8-4.9); Albumin/Globulin Ratio 1.67 Ratio (1.60-3.17); Alkaline Phosphatase 99 U/L (41-126); BUN/Creat Ratio 15.62 Ratio (12.00-20.00); Blood Urea Nitrogen 12.5 mg/dL (9.0-27.0); Calcium 9.3 mg/dL (8.7-10.3); Carbon Dioxide 27.1 mmol/L (21.6-31.8); Chloride 104 mmol/L (96-109); Chol/HDL Ratio 2.46 Ratio; Globulin 2.7 d/dL (1.6-3.3); Glucose 91 mg/dL (70-110); LDL Cholesterol,Calculated 52.8 mg/dL (0.0-131.0); Potassium 4.9 mmol/L (3.5-5.5); Sodium 141 mmol/L (135-145); T4, Free (Free Thyroxine) 1.07 ng/dL (0.80-1.80); Total Bilirubin 0.4 mg/dL (0.3-1.2); Total Protein 7.2 d/dL (6.2-8.2)
[2023-06-07 16:03] LABS: Basophils # (A) 0.08 X 10*3/uL (0.00-0.10); Basophils % (A) 1.1 %; Eosinophils # (A) 0.53 X 10*3/uL (0.04-0.35); Eosinophils % (A) 7.6 %; HCT 41.8 % (37.2-46.3); HGB 13.3 d/dL (12.0-15.0); Lymphocytes # (A) 1.64 X 10*3/uL (0.90-5.00); Lymphocytes % (A) 23.5 %; MCH 30.2 pg (27.0-32.0); MCHC 31.8 d/dL (32.0-37.0); Mean Platelet Volume 13.7 FL (9.5-12.2); Monocytes # (A) 0.56 X 10*3/uL (0.20-1.00); NRBC Per 100 WBC 0 X 10*3/uL (0.00-0.01); Neutrophils # (A) 4.16 X 10*3/uL (1.80-7.70); Neutrophils % (A) 59.5 %; Platelet Count 193 X 10*3/uL (140-440); RDW 12.8 % (11.5-14.5); WBC 6.99 X 10*3/uL (4.50-10.00)
== END | disposition home or self-care (01) ==
LOC: LABWHC1 10:18
PROVIDERS: ATTEND Family Medicine
DX: E78.5 Hyperlipidemia, unspecified (principal); E03.9 Hypothyroidism, unspecified
CPT/HCPCS: 36415; 80053; 80061; 84439; 84443; 85025

== ENCOUNTER → 2023-08-08 | Outpatient (CLI) | payer MEDICARE, BC | END | disposition home or self-care (01) | LOC: LABWHC1 14:05 | PROVIDERS: ATTEND Physician Assistant | DX: Z51.81 Encounter for therapeutic drug level monitoring (principal); Z79.899 Other long term (current) drug therapy | CPT/HCPCS: 36415; 86480 ==

== ENCOUNTER → 2024-02-13 | Outpatient (CLI) | payer MEDICARE, BC ==
--- NOTE | 2024-02-13 15:21 | XR ---
EXAMINATION TYPE: XR knee complete LT DATE OF EXAM: 02/13/2024 2:55 PM CLINICAL INDICATION:Female, 83 years old with history of M23.92 M54.32 UNSPECIFIED INTERNAL DERANGEME NT OF; [facility] COMPARISON: None. TECHNIQUE: XR knee complete LT; examined in Frontal, lateral and oblique projections. FINDINGS: No evidence of any acute osseous pathology, soft tissue swelling, or joint effusion is no breanna. Tricompartmental osteophyte formation involving the femoral condyles, tibial plateau and patella . Mild joint space narrowing. IMPRESSION: 1. No acute osseous pathology. 2. Moderate tricompartmental osteoarthritic changes.
--- NOTE | 2024-02-13 15:26 | XR ---
EXAMINATION TYPE: XR lumbar spine 2 or 3V DATE OF EXAM: 02/13/2024 2:55 PM CLINICAL INDICATION:Female, 83 years old with history of M23.92 M54.32 UNSPECIFIED INTERNAL DERANGEME NT OF; COMPARISON: 06/17/2012 TECHNIQUE: XR lumbar spine 2 or 3V - Frontal, lateral and coned in L5-S1 lateral views of the spine. FINDINGS: No evidence of any acute osseous pathology. No evidence of loss of vertebral body height i s seen. There is normal alignment of the lumbar vertebral bodies. Mild scattered disc space narrowing . Multilevel marginal osteophyte formation throughout the visualized spine. There is facet joint arth ropathy throughout the spine. Scattered at least mild to moderate neural foraminal stenosis. Arthrosi s course of the arterial vasculature. IMPRESSION: 1. No acute fracture. 2. Moderate to severe multilevel disc degeneration.
== END | disposition home or self-care (01) ==
LOC: RADXRMAIN 14:19
PROVIDERS: ATTEND Family Medicine
DX: M17.12 Unilateral primary osteoarthritis, left knee (principal); M51.36 Other intervertebral disc degeneration, lumbar region
CPT/HCPCS: 72100

== ENCOUNTER → 2024-03-26 | Outpatient (CLI) | payer MEDICARE, BC ==
--- NOTE | 2024-03-27 11:17 | MR ---
EXAMINATION TYPE: MR lumbar spine wo con DATE OF EXAM: 03/26/2024 7:00 PM CLINICAL INDICATION:Female, 84 years old with history of M23.92 UNSPECIFIED INTERNAL DERANGEMENT OF L EFT KN; PH[facility], Low back pain x5 months, occasionally into left buttocks COMPARISON: 07/01/2012 TECHNIQUE: Multi planar, multi sequence imaging was performed utilizing: T1-weighted, T2-weighted, a nd turbo inversion recovery imaging of the lumbar spine. IV Contrast: (None if empty) FINDINGS: Alignment: The lumbar vertebral bodies have preserved heights and alignment. Cord: The conus medullaris and the distal spinal cord appear unremarkable with regards to their signa l intensity and morphology. Bones/Discs: . Multilevel disc degeneration changes with osteophyte formation, disc space narrowing, Schmorl's nodes, and facet joint arthropathy. Multilevel degenerative endplate reactive edema noted w orse in at L2-L3 adjoining endplates. Intervertebral disc signal is maintained. T12-L1: No evidence of significant spinal canal stenosis or neural foraminal stenosis. L1-L2: Disc bulge and facet joint arthropathy result in mild spinal canal and moderate to severe righ t and moderate left neural foraminal stenosis. L2-L3: Disc bulge and facet joint arthropathy result in moderate spinal canal and moderate bilateral neural foraminal stenosis. L3-L4: Disc bulge and facet joint arthropathy result in severe spinal canal and moderate bilateral ne ural foraminal stenosis. L4-L5: Disc bulge and facet joint arthropathy result in mild spinal canal and moderate bilateral neur al foraminal stenosis. L5-S1: The disc has a rounded posterior morphology without significant spinal canal stenosis. Facet j oint arthropathy with mild bilateral neural foraminal stenosis. No significant spinal canal or neural foraminal stenosis in the remainder of the visualized levels. Other findings: None. IMPRESSION: 1. Findings significantly progressed from 2011 2. Severe L3-L4 and moderate L2-L3 spinal canal stenosis secondary disc bulge and facet joint arthro sahil. 3. Multilevel degeneration changes of the spine with multilevel neural foraminal stenosis worse at l eft L3-L4 with moderate moderate bilateral L4-L5, moderate bilateral L3-L4 moderate bilateral to L3 a nd moderate to severe right L1 and L2.
== END | disposition home or self-care (01) ==
LOC: RADMRIMAIN 17:53
PROVIDERS: ATTEND Family Medicine
DX: M47.819 Spondylosis without myelopathy or radiculopathy, site unspecified (principal); M51.36 Other intervertebral disc degeneration, lumbar region; M99.73 Connective tissue and disc stenosis of intervertebral foramina of lumbar region; M23.92 Unspecified internal derangement of left knee
CPT/HCPCS: 72148

== ENCOUNTER 2024-05-06 01:05 | Emergency (ER) | payer MEDICARE, BC ==
--- NOTE | 2024-06-12 13:57 | XR ---
EXAMINATION TYPE: XR chest 2V DATE OF EXAM: 05/06/2024 COMPARISON: Chest radiographs from 06/21/2023 TECHNIQUE: XR chest 2V Frontal and lateral views of the chest. CLINICAL INDICATION:Female, 84 years old with history of TACHYCARDIA; FINDINGS: Lungs/Pleura: There is no evidence of pleural effusion, focal consolidation, or pneumothorax. Pulmonary vascularity: Unremarkable. Heart/mediastinum: Cardiomediastinal silhouette is unremarkable. Musculoskeletal: Multiple level degenerative disc disease changes seen throughout the spine. IMPRESSION: No acute cardiopulmonary disease/process. [facility], , 06/12/2024 1:55 PM
== END 2024-05-06 06:27 | disposition home or self-care (01) ==
LOC: EC 01:05
CPT/HCPCS: 71046; 93005; 99285

== ENCOUNTER → 2024-06-26 | Outpatient (CLI) | payer MEDICARE, BC ==
[2024-06-26 22:08] LABS: BUN/Creat Ratio 15.62 Ratio (12.00-20.00); Blood Urea Nitrogen 12.5 mg/dL (9.0-27.0); Calcium 9.3 mg/dL (8.7-10.3); Carbon Dioxide 24.3 mmol/L (21.6-31.8); Chloride 105 mmol/L (96-109); Chol/HDL Ratio 2.41 Ratio; Glucose 97 mg/dL (70-110); LDL Cholesterol,Calculated 48.1 mg/dL (0.0-131.0); Potassium 4.9 mmol/L (3.5-5.5); Sodium 141 mmol/L (135-145); T4, Free (Free Thyroxine) 1.13 ng/dL (0.80-1.80)
== END | disposition home or self-care (01) ==
LOC: LABWHC1 10:40
PROVIDERS: ATTEND Family Medicine
DX: I10 Essential (primary) hypertension (principal); E03.9 Hypothyroidism, unspecified; E78.5 Hyperlipidemia, unspecified
CPT/HCPCS: 36415; 80048; 80061; 83735; 84439; 84443

== ENCOUNTER 2024-07-01 12:02 | Day surgery (SDC) | payer MEDICARE, BC ==
[2024-07-01 12:40] VITALS: RESP 16; TEMP 97.5
[2024-07-01] MEDS: LACTATED RINGERS 1,000 ML IV SCH (12:45)
[2024-07-01] MEDS: LIDOCAINE 1% (10MG/ML) FOR IV START INTRADERMA ONE (12:45)
[2024-07-01] MEDS: IV FLUID CONTINUATION 1,000 ML IV ONE (12:45)
[2024-07-01] MEDS: NA PHOS,M-B/NA PHOS,DI-BA 133 ML ENEMA RECTAL ONE (12:49)
[2024-07-01] MEDS ORDERED: PROPOFOL 10 MG/ML 20 ML VIAL IV ONE (13:09)
[2024-07-01] MEDS ORDERED: LIDOCAINE 1% INJ 10MG/ML (20 ML MDV) ONE (13:09)
--- NOTE | 2024-07-01 13:09 | P.GSHP ---
History of Present Illness H&P Date: 07/01/24 Chief Complaint: Rectal bleeding 84-year-old female here for flexible sigmoidoscopy. Patient has had complaints of perirectal pain and bleeding. Patient has had some purulent drainage at times. Symptoms slightly improved since her last visit in the office 2 months ago. 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 History of Any Multi-Drug Resistant Organisms: None Reported Past Surgical History: Appendectomy, Breast Surgery, Heart Catheterization, Tubal Ligation Additional Past Surgical History / Comment(s): right carotid endarterectomy, cataracts., Basal cell carcinoma removed from chest. D&C, face lift, left breast biopsy, fatty tumor removed Past Anesthesia/Blood Transfusion Reactions: Previous Problems w/ Anesthesia Additional Past Anesthesia/Blood Transfusion Reaction / Comment(s): low bloodpressure. Smoking Status: Former smoker - Past Family History Mother Family Medical History: No Reported History Medications and Allergies Home Medications Medication Instructions Recorded Confirmed Type Levothyroxine Sodium 25 mcg PO QAM 01/15/18 06/26/24 History Atorvastatin [Lipitor] 80 mg PO DAILY 10/06/21 06/26/24 History Ezetimibe [Zetia] 10 mg PO DAILY 06/26/24 06/26/24 History Iron(Unk) 1 tab PO DAILY 06/26/24 06/26/24 History Magnesium(Unk) 1 tab PO DAILY 06/26/24 06/26/24 History Valsartan 160 mg PO BID 06/26/24 06/26/24 History Vit C/E/Cuperic/Zinc/Lutein 1 each PO DAILY 06/26/24 06/26/24 History [Preservision Lutein Softgel] Allergies Allergy/AdvReac Type Severity Reaction Status Date / Time codeine Allergy Itching Verified 06/26/24 13:42 lisinopril Allergy Unknown Verified 07/01/24 12:29 nifedipine [From Procardia] Allergy Rapid Verified 07/01/24 12:27 Heart Rate Surgical - Exam Vital Signs Temp Pulse Resp BP Pulse Ox 97.5 F L 76 16 192/81 97 07/01/24 12:37 07/01/24 12:37 07/01/24 12:37 07/01/24 12:37 07/01/24 12:37 Physical exam: General: Well-developed, well-nourished HEENT: Normocephalic, sclerae nonicteric Abdomen: Nontender, nondistended Extremities: No edema Neuro: Alert and oriented Assessment and Plan (1) Rectal bleeding Narrative/Plan: Will proceed with flexible sigmoidoscopy with possible hemorrhoidal banding. Risks of bleeding, infection, perforation reviewed. Current Visit: Yes Status: Acute Code(s): K62.5 - HEMORRHAGE OF ANUS AND RECTUM SNOMED Code(s): 82852580
--- NOTE | 2024-07-01 13:31 | P.PCN ---
Date of Procedure: 07/01/24 Procedure(s) Performed: PREOPERATIVE DIAGNOSIS: Rectal bleeding POSTOPERATIVE DIAGNOSIS: Colitis, diverticulosis PROCEDURE: Flexible sigmoidoscopy ANESTHESIA: MAC SURGEON: Burak Bradley M.D. SPECIMENS: Colitis ENDOSCOPIC PROCEDURE: The patient was placed on the endoscopy table in the left decubitus position. The Olympus colonoscope was inserted into the anus and passed under direct visualization to the mid to proximal sigmoid colon. The patient had diffuse colitis throughout the visualized colon. The patient had diverticulosis as well. There was both friability and fresh bleeding. Multiple biopsies were taken. This did not appear to be malignant in nature particularly given the length of the inflammatory changes present. No polypoid lesions were seen. Digital rectal examination was normal. No visible perianal abscess or fistula noted. The patient was taken to the recovery room in stable condition per anesthesia guidelines. RECOMMENDATIONS: Await biopsies. Begin Asacol twice daily. Likely will refer to GI once pathology back.
[2024-07-01 13:50] VITALS: BP 167/76; PULSE 65
== END 2024-07-01 14:24 | disposition home or self-care (01) ==
LOC: ORWHC2ENDO 12:02
PROVIDERS: ATTEND Surgery
DX: K52.9 Noninfective gastroenteritis and colitis, unspecified (principal); K57.30 Diverticulosis of large intestine without perforation or abscess without bleeding; E07.9 Disorder of thyroid, unspecified; E78.5 Hyperlipidemia, unspecified; I10 Essential (primary) hypertension; J45.909 Unspecified asthma, uncomplicated; M19.90 Unspecified osteoarthritis, unspecified site; Z85.828 Personal history of other malignant neoplasm of skin; Z87.19 Personal history of other diseases of the digestive system; Z98.51 Tubal ligation status; Z90.49 Acquired absence of other specified parts of digestive tract; Z87.891 Personal history of nicotine dependence; Z79.890 Hormone replacement therapy; Z88.8 Allergy status to other drugs, medicaments and biological substances; Z79.02 Long term (current) use of antithrombotics/antiplatelets; Z79.899 Other long term (current) drug therapy
CPT/HCPCS: 88305; 45331; J2003; J2704; 45330

== ENCOUNTER → 2024-07-24 | Outpatient (CLI) | payer MEDICARE, BC ==
--- NOTE | 2024-07-24 13:28 | MM ---
Reason for Exam: Screening (asymptomatic). Last mammogram was performed 1 year(s) and 1 month(s) ago. Patient History: Menarche at age 17. First Full-Term at age 23. Postmenopausal. Other cancer, age 67. Hormonal Contraceptives for 9 years from age 22 until age 31. 2005, Excisional Biopsy on the Left side. Maternal cousin had breast cancer, age 69. Risk Values: Shari 5 year model risk: 1.5%. NCI Lifetime model risk: 2.0%. Prior Study Comparison: 05/16/2021 Bilateral Screening Mammogram, [facility]. 05/17/2022 Bilateral MG 3D screening mammo w/cad, [facility]. 06/21/2023 Bilateral MG 3D screening mammo w/cad, [facility]. Tissue Density: The breasts are almost entirely fatty. Findings: Analyzed By CAD. Right breast: There is no suspicious group of microcalcifications or new suspicious mass. Benign-appearing calcifications right breast. Left breast: There is no suspicious group of microcalcifications or new suspicious mass. Benign-appearing calcifications left breast. Overall Assessment: Benign, BI-RAD 2 Management: Screening Mammogram of both breasts in [address] [facility] will attempt to contact patient to return for supplemental views and ultrasound if indicated. Patient should continue monthly self-breast exams. A clinical breast exam by your physician is recommended on an annual basis. This exam should not preclude additional follow-up of suspicious palpable abnormalities. Note on Shari scores and lifetime risk: 1. A Shari score greater than 3% is considered moderate risk. If this is the case, consider specialist referral to assess eligibility for a risk reducing agent. 2. If overall lifetime risk for the development of breast cancer is 20% or higher, the patient may qualify for future screening with alternating mammogram and breast MRI. [facility], , 07/24/2024 1:25 PM. Electronically signed and approved by: Arnulfo Smith DO
== END | disposition home or self-care (01) ==
LOC: RADMAMWWP 12:53
PROVIDERS: ATTEND Family Medicine
CPT/HCPCS: 77063; 77067

== ENCOUNTER → 2024-07-24 | Outpatient (CLI) | payer MEDICARE, BC ==
[2024-07-24 19:52] LABS: % Iron Saturation 10.4 (12.00-45.00); Ferritin 34.2 ng/mL (10.0-291.0)
[2024-07-24 19:53] LABS: Basophils # (A) 0.04 X 10*3/uL (0.00-0.10); Basophils % (A) 0.4 %; Eosinophils % (A) 1.9 %; HCT 38.4 % (37.2-46.3); Lymphocytes # (A) 1.68 X 10*3/uL (0.90-5.00); Lymphocytes % (A) 15.8 %; MCH 27.8 pg (27.0-32.0); MCHC 31.3 g/dL (32.0-37.0); MCV 89.1 FL (80.0-97.0); Mean Platelet Volume 11.8 FL (9.5-12.2); Monocytes # (A) 0.74 X 10*3/uL (0.20-1.00); NRBC Per 100 WBC 0 X 10*3/uL (0.00-0.01); Neutrophils # (A) 7.95 X 10*3/uL (1.80-7.70); Neutrophils % (A) 74.6 %; Platelet Count 315 X 10*3/uL (140-440); RBC 4.31 X 10*6/uL (4.10-5.20); RDW 15.6 % (11.5-14.5); WBC 10.64 X 10*3/uL (4.50-10.00)
== END | disposition home or self-care (01) ==
LOC: LABWHC1 13:25
PROVIDERS: ATTEND Nurse Practitioner Family
DX: L40.0 Psoriasis vulgaris (principal); D64.9 Anemia, unspecified
CPT/HCPCS: 36415; 82728; 83540; 83550; 85025; 86480